=== PATIENT | female | born 1940 | race Caucasian/White ===

== ENCOUNTER → 2017-10-25 | Outpatient (CLI) | payer MEDICARE ==
--- NOTE | 2017-10-25 18:40 | MR ---
EXAMINATION TYPE: MR angio head wo con DATE OF EXAM: 10/25/2017 COMPARISON: NONE HISTORY: Headaches, I 70.90 TECHNIQUE: Time of flight images focusing on the [place] were performed without contrast. Th ree-dimensional reconstructions on an alternate workstation FINDINGS: The anterior posterior circulation are intact. There is no evident embolus, dissection, or aneurysm. Internal carotid arteries, vertebrobasilar system are patent. A1 segment of the internal ca rotid artery on the left is somewhat atrophic. IMPRESSION: Normal [place] MRA.
== END | disposition home or self-care (01) ==
LOC: RADMRIMAIN 13:00
PROVIDERS: ATTEND Internal Medicine
DX: I70.90 Unspecified atherosclerosis (principal)
CPT/HCPCS: 70544

== ENCOUNTER 2018-10-22 17:28 | Emergency (ER) | payer MEDICARE ==
[2018-10-22] MEDS ORDERED: KETOROLAC 60 MG/2 ML VIAL IM STA (17:33)
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
--- NOTE | 2018-10-22 18:41 | XR ---
EXAMINATION TYPE: XR shoulder complete LT DATE OF EXAM: 10/22/2018 COMPARISON: NONE HISTORY: Shoulder pain TECHNIQUE: 3 views FINDINGS: There is an apparent acute impacted fracture of the humeral neck. There is significant spur ring at the glenohumeral joint. There is no dislocation. There is spurring at the AC joint. IMPRESSION: Mildly impacted humeral neck fracture. No dislocation. Significant pre-existing arthritic change in the shoulder joint.
[2018-10-22] MEDS ORDERED: HYDROmorphone 1 MG/ML 1 ML SYRINGE IM STA (18:59)
[2018-10-22 19:35] VITALS: BP 155/72; PULSE 77; RESP 16
== END 2018-10-22 19:34 | disposition home or self-care (01) ==
LOC: EC 17:28
DX: S42.202A Unspecified fracture of upper end of left humerus, initial encounter for closed fracture (principal); F03.90 Unspecified dementia, unspecified severity, without behavioral disturbance, psychotic disturbance, mood disturbance, and anxiety; E07.9 Disorder of thyroid, unspecified; H54.8 Legal blindness, as defined in USA; Z88.5 Allergy status to narcotic agent; Z79.890 Hormone replacement therapy; Z79.899 Other long term (current) drug therapy; Z87.39 Personal history of other diseases of the musculoskeletal system and connective tissue; W01.0XXA Fall on same level from slipping, tripping and stumbling without subsequent striking against object, initial encounter; Y93.89 Activity, other specified; Y92.009 Unspecified place in unspecified non-institutional (private) residence as the place of occurrence of the external cause
CPT/HCPCS: 73030; 99283; L3670; J1885; J1170

== ENCOUNTER 2020-07-30 16:52 | Inpatient (IN) | payer MEDICARE ==
[2020-07-30] MEDS ORDERED: SODIUM CHLORIDE 0.9% 500 ML 500 ML IV ONE (17:45)
--- NOTE | 2020-07-30 17:48 | ED ---
Altered Mental Status HPI - General Chief Complaint: Altered Mental Status Stated Complaint: poss UTI Time Seen by Provider: 07/30/20 17:19 Source: EMS Mode of arrival: EMS Limitations: no limitations - History of Present Illness Initial Comments: Nelia is a 79yo female with history of advanced dementia who presents the ER today via EMS for evaluation of agitation and combativeness with family at bedside. EMS reports that upon their arrival the patient was then soiled clothes with a strong odor of urine, she clearly been unable to care for herself and her family been unable to care for her. She became combative with her elderly therefore EMS was called to bring the patient to hospital for further evaluation. She offers no meaningful history. - Related Data Home Medications Medication Instructions Recorded Confirmed Donepezil HCl [Aricept] 5 mg PO BID 10/22/18 07/30/20 Levothyroxine Sodium 100 mcg PO DAILY 07/30/20 07/30/20 Sertraline HCl [Zoloft] 100 mg PO DAILY 07/30/20 07/30/20 Allergies Allergy/AdvReac Type Severity Reaction Status Date / Time tramadol Allergy Nausea & Verified 10/22/18 17:49 Vomiting Review of Systems ROS Statement: Those systems with pertinent positive or pertinent negative responses have been documented in the HPI. ROS Other: All systems not noted in ROS Statement are negative. Past Medical History Past Medical History: Eye Disorder, GERD/Reflux, Osteoarthritis (OA), Thyroid Disorder Additional Past Medical History / Comment(s): Legally blind L eye. Has macular degeneration, diff. swallowing and arthritis in both hands. History of Any Multi-Drug Resistant Organisms: None Reported Past Surgical History: Cholecystectomy Additional Past Surgical History / Comment(s): EGD Past Anesthesia/Blood Transfusion Reactions: No Reported Reaction Past Alcohol Use History: None Reported Past Drug Use History: None Reported - Past Family History Mother Family Medical History: Unable to Obtain Additional Family Medical History / Comment(s): Pt. was adopted and does not know her family hx. General Exam - General Exam Comments Initial Comments: Physical Exam GENERAL: Elderly, no acute distress, not ill appearing Strong odor of urine, soiled clothing HENT: Normocephalic, Atraumatic. EYES: PERRL, EOMI PULMONARY: Unlabored respirations. CARDIOVASCULAR: Irregular ABDOMEN: Soft and nontender with normal bowel sounds. SKIN: Dry : Deferred NEUROLOGIC: Oriented to self only Agitated MUSCULOSKELETAL: Generalized atrophy PSYCHIATRIC: Unable to assess due to dementia Limitations: no limitations Course Vital Signs 07/30/20 07/30/20 07/30/20 17:01 17:20 18:21 Temperature 98.7 F Pulse Rate 76 87 86 Respiratory 16 16 16 Rate Blood Pressure 197/94 200/97 183/97 O2 Sat by Pulse 99 99 99 Oximetry 07/30/20 21:26 Temperature Pulse Rate 76 Respiratory 16 Rate Blood Pressure 199/93 O2 Sat by Pulse 100 Oximetry Medical Decision Making - Medical Decision Making Demented 79-year-old who is become combative not taking care of herself is not possible for her to take care of her Workup showed elevated TSH consistent with hypothyroid Urine had leukocytes and nitrites though not much white blood cells, culture will be obtained single dose of Rocephin was given Patient will be admitted for combativeness with the marriage and family social worker consult Dr Campos accepts - Lab Data Result diagrams: 07/30/20 17:52 07/30/20 17:52 Lab Results 07/30/20 07/30/20 07/30/20 Range/Units 17:39 17:52 17:52 WBC 5.1 (3.8-10.6) k/uL RBC 4.39 (3.80-5.40) m/uL Hgb 13.0 (11.4-16.0) gm/dL Hct 39.3 (34.0-46.0) % MCV 89.5 (80.0-100.0) fL MCH 29.6 (25.0-35.0) pg MCHC 33.0 (31.0-37.0) g/dL RDW 13.1 (11.5-15.5) % Plt Count 213 (150-450) k/uL MPV 8.0 Neutrophils % 62 % Lymphocytes % 23 % Monocytes % 9 % Eosinophils % 4 % Basophils % 1 % Neutrophils # 3.2 (1.3-7.7) k/uL Lymphocytes # 1.1 (1.0-4.8) k/uL Monocytes # 0.4 (0-1.0) k/uL Eosinophils # 0.2 (0-0.7) k/uL Basophils # 0.1 (0-0.2) k/uL Sodium 138 (137-145) mmol/L Potassium 4.3 (3.5-5.1) mmol/L Chloride 103 (98-107) mmol/L Carbon Dioxide 28 (22-30) mmol/L Anion Gap 7 mmol/L BUN 21 H (7-17) mg/dL Creatinine 0.99 (0.52-1.04) mg/dL Est GFR (CKD-EPI)AfAm 64 (>60 ml/min/1.73 sqM) Est GFR (CKD-EPI)NonAf 55 (>60 ml/min/1.73 sqM) Glucose 105 H (74-99) mg/dL Calcium 9.8 (8.4-10.2) mg/dL Total Bilirubin 0.5 (0.2-1.3) mg/dL AST 23 (14-36) U/L ALT 11 (4-34) U/L Alkaline Phosphatase 99 (38-126) U/L Total Protein 7.4 (6.3-8.2) g/dL Albumin 4.3 (3.5-5.0) g/dL TSH 9.770 H (0.465-4.680) mIU/L Free T4 1.11 (0.78-2.19) ng/dL Urine Color Yellow Urine Appearance Cloudy H (Clear) Urine pH 6.5 (5.0-8.0) Ur Specific [place] 1.014 (1.001-1.035) Urine Protein 1+ H (Negative) Urine Glucose (UA) Negative (Negative) Urine Ketones Negative (Negative) Urine Blood Negative (Negative) Urine Nitrite Positive H (Negative) Urine Bilirubin Negative (Negative) Urine Urobilinogen <2.0 (<2.0) mg/dL Ur Leukocyte Esterase Small H (Negative) Urine RBC <1 (0-5) /hpf Urine WBC 3 (0-5) /hpf Ur Squamous Epith Cells <1 (0-4) /hpf Urine Bacteria Few H (None) /hpf Urine Mucus Rare H (None) /hpf Coronavirus (PCR) (Not Detectd) 07/30/20 Range/Units 19:43 WBC (3.8-10.6) k/uL RBC (3.80-5.40) m/uL Hgb (11.4-16.0) gm/dL Hct (34.0-46.0) % MCV (80.0-100.0) fL MCH (25.0-35.0) pg MCHC (31.0-37.0) g/dL RDW (11.5-15.5) % Plt Count (150-450) k/uL MPV Neutrophils % % Lymphocytes % % Monocytes % % Eosinophils % % Basophils % % Neutrophils # (1.3-7.7) k/uL Lymphocytes # (1.0-4.8) k/uL Monocytes # (0-1.0) k/uL Eosinophils # (0-0.7) k/uL Basophils # (0-0.2) k/uL Sodium (137-145) mmol/L Potassium (3.5-5.1) mmol/L Chloride (98-107) mmol/L Carbon Dioxide (22-30) mmol/L Anion Gap mmol/L BUN (7-17) mg/dL Creatinine (0.52-1.04) mg/dL Est GFR (CKD-EPI)AfAm (>60 ml/min/1.73 sqM) Est GFR (CKD-EPI)NonAf (>60 ml/min/1.73 sqM) Glucose (74-99) mg/dL Calcium (8.4-10.2) mg/dL Total Bilirubin (0.2-1.3) mg/dL AST (14-36) U/L ALT (4-34) U/L Alkaline Phosphatase (38-126) U/L Total Protein (6.3-8.2) g/dL Albumin (3.5-5.0) g/dL TSH (0.465-4.680) mIU/L Free T4 (0.78-2.19) ng/dL Urine Color Urine Appearance (Clear) Urine pH (5.0-8.0) Ur Specific [place] (1.001-1.035) Urine Protein (Negative) Urine Glucose (UA) (Negative) Urine Ketones (Negative) Urine Blood (Negative) Urine Nitrite (Negative) Urine Bilirubin (Negative) Urine Urobilinogen (<2.0) mg/dL Ur Leukocyte Esterase (Negative) Urine RBC (0-5) /hpf Urine WBC (0-5) /hpf Ur Squamous Epith Cells (0-4) /hpf Urine Bacteria (None) /hpf Urine Mucus (None) /hpf Coronavirus (PCR) Not Detected (Not Detectd) Disposition Clinical Impression: Dementia Disposition: ADMITTED IP TO THIS HOSP Condition: Stable Referrals: River Kilpatrick MD [Primary Care Provider] - 1-2 days
[2020-07-30 18:00] LABS: Appearance,Urine Cloudy (Clear); Bacteria,Urine Few /hpf; Bilirubin,Urine Negative (Negative); Blood,Urine Negative (Negative); Color,Urine Yellow; Glucose,Urine (UA) Negative (Negative); Ketones,Urine Negative (Negative); Leukocyte Esterase,Urine Small (Negative); Mucus,Urine Rare /hpf; Nitrite,Urine Positive (Negative); PH, Urine 6.5 (5.0-8.0); Protein,Urine 1+ (Negative); RBC,Urine <1 /hpf (0-5); Specific Gravity,Urine 1.014 (1.001-1.035); Squamous Epithelial Cell,Urine <1 /hpf (0-4); Urobilinogen,Urine <2.0 mg/dL (<2.0); WBC,Urine 3 /hpf (0-5)
[2020-07-30 18:04] LABS: Basophils # (A) 0.1 k/uL (0-0.2); Basophils % (A) 1 %; Eosinophils # (A) 0.2 k/uL (0-0.7); Eosinophils % (A) 4 %; HCT 39.3 % (34.0-46.0); Lymphocytes # (A) 1.1 k/uL (1.0-4.8); Lymphocytes % (A) 23 %; MCH 29.6 pg (25.0-35.0); MCV 89.5 fL (80.0-100.0); Monocytes # (A) 0.4 k/uL (0-1.0); Monocytes % (A) 9 %; Neutrophils # (A) 3.2 k/uL (1.3-7.7); Neutrophils % (A) 62 %; Platelet Count 213 k/uL (150-450); RBC 4.39 m/uL (3.80-5.40); RDW 13.1 % (11.5-15.5); WBC 5.1 k/uL (3.8-10.6)
[2020-07-30 18:25] LABS: Albumin 4.3 g/dL (3.5-5.0); Calcium 9.8 mg/dL (8.4-10.2); Potassium 4.3 mmol/L (3.5-5.1); Total Bilirubin 0.5 mg/dL (0.2-1.3); Total Protein 7.4 g/dL (6.3-8.2)
--- NOTE | 2020-07-30 18:46 | XR ---
EXAMINATION TYPE: XR chest 1V portable DATE OF EXAM: 07/30/2020 COMPARISON: NONE HISTORY: Altered mental status TECHNIQUE: Single view FINDINGS: Heart is normal. Lungs are clear of consolidation there is coarsening of interstitial urel ngs. Thoracic aorta is atheromatous. There is no pleural effusion. There is some deformity left humeral neck consistent with an old fracture. IMPRESSION: Pulmonary interstitial fibrotic changes. No heart failure.
[2020-07-30] MEDS ORDERED: NALOXONE 0.4 MG/ML 1 ML VIAL IV PRN (19:08)
[2020-07-30 19:19] LABS: T4, Free (Free Thyroxine) 1.11 ng/dL (0.78-2.19)
[2020-07-30] MEDS ORDERED: cloNIDine HCL 0.1 MG TAB PO STA (21:37)
[2020-07-30] MEDS: LORazepam 2 MG/ML INJ IV PRN (22:42)
[2020-07-31] MEDS ORDERED: cloNIDine 0.1 MG/24HR PATCH TRANSDERM SCH (04:00)
[2020-07-31] MEDS: LORazepam 2 MG/ML INJ IV PRN ×2 (07:32→16:35)
[2020-07-31] MEDS ORDERED: SERTRALINE 100 MG TAB PO SCH (10:15)
[2020-07-31] MEDS: LEVOTHYROXINE 100 MCG TAB PO SCH (12:05)
[2020-07-31] MEDS ORDERED: risperiDONE 0.5 MG TAB PO SCH (21:00)
[2020-07-31] MEDS ORDERED: DONEPEZIL 5 MG TAB PO SCH (21:00)
--- NOTE | 2020-07-31 21:59 | P.HPIM ---
History of Present Illness H&P Date: 07/31/20 Chief Complaint: Increasing confusion History of presenting complaint: This is a 79-year-old patient of Dr. River Kilpatrick. Chronic stable medical conditions include GERD, osteoarthritis, hypothyroid, legally blind in left eye, macular degeneration,. Patient known to have advanced dementia. Brought in by the EMS to the ER. Patient been reported to have increased agitation and combativeness. In the EMS arrived they found the patient to be having solid closes strong odor of urine. She has not been able to care for self not is a family able to care for self. She also become combative with her elderly . When I see this patient this morning patient is not able to give any history. Just laying in bed and mumbling. Review of systems cannot be done because of patient's advanced dementia Past medical history to include: Dementia, GERD, osteoarthritis, hypothyroid, blind in the left eye, macular degeneration, some difficulty swallowing, arthritis Social history: No history of smoking or alcohol reported. Lives with family. Family history: Patient was adopted Physical examination: VITAL SIGNS: 98.7, 76, 16, 197.94, 99% room air GENERAL: BMI 34.3, laying in bed eyes closed mumbling. EYES: Pupils equal. Conjunctiva normal. HEENT: External appearance of nose and ears normal, oral cavity grossly normal. NECK: JVD unable to assess; masses not palpable. HEART: First and second heart sounds are normal; no edema. LUNGS: Respiratory rate normal; clear to auscultation. ABDOMEN: Soft, nontender, liver spleen not palpable, no masses palpable. PSYCH: [Patient just mumbling cannot be assessed. NEUROLOGICAL: [Cranial nerves grossly intact; no facial asymmetry, moving all limbs MUSCULAR skeletal: Evidence of OA especially in the hands LYMPHATICS: No lymph nodes palpable in the axilla and neck INVESTIGATIONS, reviewed in the clinical context: White count 5.1 hemoglobin 13 platelets 213 potassium 4.3 creatinine 0.99 TSH 9.7 feet T4 1 0.11 UA positive for nitrite, leukoesterase bacteria Coronavirus [PCR]-not detected EKG tracing personally reviewed by me-sinus rhythm with poor quality baseline Chest x-ray film personally reviewed by me-borderline cardiac megaly. Some unfolding of the aorta Assessment and plan: -This is a 79-year-old patient with advanced dementia. He seems to progressively gotten worse. Patient was somewhat agitated at home. There may be element of psychosis. From dementia. Patient not giving any history at all. -GERD continue with PPI -Primary osteoarthritis use Tylenol when necessary -Hypothyroid continue with Synthroid. Is unclear if patient has been taking her Synthroid -Depression patient is on Zoloft. At this point to discontinue the same -Acute UTI from cystitis. Start ceftriaxone -Essential hypertension accelerated -We will start the patient on Risperdal at night. DC the Zoloft. Use a Ca tapres patch for blood pressure. [employer] worker admin work. Lovenox for DVT prophylaxis. Fall precautions Past Medical History Past Medical History: Dementia, Eye Disorder, GERD/Reflux, Osteoarthritis (OA), Thyroid Disorder Additional Past Medical History / Comment(s): Legally blind L eye. Has macular degeneration, diff. swallowing and arthritis in both hands. History of Any Multi-Drug Resistant Organisms: None Reported Past Surgical History: Cholecystectomy Additional Past Surgical History / Comment(s): EGD Past Anesthesia/Blood Transfusion Reactions: No Reported Reaction Smoking Status: Unknown if ever smoked Past Alcohol Use History: None Reported Past Drug Use History: None Reported - Past Family History Mother Family Medical History: Unable to Obtain Additional Family Medical History / Comment(s): Pt. was adopted and does not know her family hx. Medications and Allergies Home Medications Medication Instructions Recorded Confirmed Type Donepezil HCl [Aricept] 5 mg PO BID 10/22/18 07/30/20 History Levothyroxine Sodium 100 mcg PO DAILY 07/30/20 07/30/20 History Sertraline HCl [Zoloft] 100 mg PO DAILY 07/30/20 07/30/20 History Allergies Allergy/AdvReac Type Severity Reaction Status Date / Time tramadol Allergy Nausea & Verified 10/22/18 17:49 Vomiting Physical Exam Vitals: Vital Signs Temp Pulse Pulse Pulse Resp BP BP 07/31/20 09:50 98.4 F 61 18 176/77 07/31/20 03:10 72 16 203/108 07/30/20 23:30 70 16 153/78 07/30/20 22:30 16 07/30/20 21:26 76 16 199/93 07/30/20 18:21 86 16 183/97 07/30/20 17:20 87 16 200/97 07/30/20 17:01 98.7 F 76 16 197/94 Pulse Ox 07/31/20 09:50 96 07/31/20 03:10 99 07/30/20 23:30 99 07/30/20 22:30 07/30/20 21:26 100 07/30/20 18:21 99 07/30/20 17:20 99 07/30/20 17:01 99 Intake and Output 07/30/20 07/31/20 07/31/20 22:59 06:59 14:59 Other: Voiding Method Diaper Diaper # Voids 4 Weight 90.718 kg Results CBC & Chem 7: 07/30/20 17:52 07/30/20 17:52 Labs: Abnormal Lab Results - Last 24 Hours (Table) 07/30/20 07/30/20 Range/Units 17:39 17:52 BUN 21 H (7-17) mg/dL Glucose 105 H (74-99) mg/dL TSH 9.770 H (0.465-4.680) mIU/L Urine Appearance Cloudy H (Clear) Urine Protein 1+ H (Negative) Urine Nitrite Positive H (Negative) Ur Leukocyte Esterase Small H (Negative) Urine Bacteria Few H (None) /hpf Urine Mucus Rare H (None) /hpf Thrombosis Risk Factor Assmnt - Choose All That Apply Each Factor Represents 1 point: Obesity (BMI >25) Each Risk Factor Represents 3 Points: Age 75 years or older Thrombosis Risk Factor Assessment Total Risk Factor Score: 4 Thrombosis Risk Factor Assessment Level: Moderate Risk
[2020-08-01] MEDS: LEVOTHYROXINE 100 MCG TAB PO SCH ×2 (05:50→05:52)
--- NOTE | 2020-08-01 20:01 | P.PN ---
Progress Note - Text Progress Note Date: 08/01/20 Chief Complaint: Increasing confusion History of presenting complaint: This is a 79-year-old patient of Dr. River Kilpatrick. Chronic stable medical conditions include GERD, osteoarthritis, hypothyroid, legally blind in left eye, macular degeneration,. Patient known to have advanced dementia. Brought in by the EMS to the ER. Patient been reported to have increased agitation and combativeness. In the EMS arrived they found the patient to be having solid closes strong odor of urine. She has not been able to care for self not is a family able to care for self. She also become combative with her elderly . When I see this patient patient is not able to give any history. Just laying in bed and mumbling. Patient intubated with advancing dementia. Agitation. Started on small dose of Risperdal at night. Today- at the bedside. Patient is awake.. Patient's flipping through a [place]. But not really able to answer questions. Did not eat any breakfast. does state that the patient does not sleep at home and walks around at night. Review of systems cannot be done because of patient's advanced dementia Active Medications Clonidine HCl (Clonidine 0.1 Mg/24hr Patch) 1 patch TRANSDERM Q7D [facility] Last Admin: 07/31/20 04:06 Dose: 1 patch Documented by: Ceftriaxone Sodium 1 gm/ (Sodium Chloride) 50 mls @ 100 mls/hr IVPB Q24HR [facility] Last Admin: 08/01/20 07:24 Dose: 100 mls/hr Documented by: Levothyroxine Sodium (Levothyroxine 100 Mcg Tab) 100 mcg PO DAILY@0630 [facility] Last Admin: 08/01/20 05:52 Dose: Not Given Documented by: Lorazepam (Lorazepam 2 Mg/Ml Inj) 0.5 mg IV Q6HR PRN PRN Reason: Agitation or Acute Anxiety Last Admin: 07/31/20 16:35 Dose: 0.5 mg Documented by: Naloxone HCl (Naloxone 0.4 Mg/Ml 1 Ml Vial) 0.2 mg IV Q2M PRN PRN Reason: Opioid Reversal Risperidone (Risperidone 0.25 Mg Tab) 0.25 mg PO HS [facility] Past medical history to include: Dementia, GERD, osteoarthritis, hypothyroid, blind in the left eye, macular degeneration, some difficulty swallowing, arthritis Social history: No history of smoking or alcohol reported. Lives with family. Family history: Patient was adopted Physical examination: VITAL SIGNS: 96.2, 89, 20, 150 06/09/2019, 99% room air GENERAL: Sitting up in bed, awake, flipping through [place]. Not answering questions EYES: Pupils equal. Conjunctiva normal. NECK: JVD unable to assess; masses not palpable. HEART: First and second heart sounds are normal; no edema. LUNGS: Respiratory rate normal; clear to auscultation. ABDOMEN: Soft, nontender, liver spleen not palpable, no masses palpable. PSYCH: Unable to assess NEUROLOGICAL: [Cranial nerves grossly intact; no facial asymmetry, moving all limbs MUSCULAR skeletal: Evidence of OA especially in the hands INVESTIGATIONS, reviewed in the clinical context: White count 5.1 hemoglobin 13 platelets 213 potassium 4.3 creatinine 0.99 TSH 9.7 feet T4 1 0.11 UA positive for nitrite, leukoesterase bacteria Coronavirus [PCR]-not detected EKG tracing personally reviewed by me-sinus rhythm with poor quality baseline Chest x-ray film personally reviewed by me-borderline cardiac megaly. Some unfolding of the aorta Assessment and plan: -Severe cognitive impairment from Alzheimer's dementia, with irritability -GERD continue with PPI -Primary osteoarthritis use Tylenol when necessary -Hypothyroid continue with Synthroid. Is unclear if patient has been taking her Synthroid -Depression patient is on Zoloft. At this point to discontinue the same -Acute UTI from cystitis. Start ceftriaxone -Essential hypertension accelerated We'll cut back the dose of Risperdal to .25 mg at night. Will DC the Catapres patch and start the patient on Lopressor 100 mg twice daily. Care was discussed at length with the patient's at the bedside. He wishes to take the patient home. I reinforced the importance of sleep hygiene. Discharge planning was involved. Change ceftriaxone to Keflex. Spoke to the nurse. Total time spent about 40 minutes with over 25 minutes of discussion.
[2020-08-01] MEDS: ENOXAPARIN 40 MG/0.4 ML SYRINGE SQ SCH (20:22)
[2020-08-01] MEDS: METOPROLOL TARTRATE 50 MG TAB PO SCH (20:22)
[2020-08-01] MEDS: LORazepam 2 MG/ML INJ IV PRN (20:23)
[2020-08-01] MEDS ORDERED: risperiDONE 0.25 MG TAB PO SCH (21:00)
[2020-08-02] MEDS: LEVOTHYROXINE 100 MCG TAB PO SCH (05:45)
[2020-08-02] MEDS: ENOXAPARIN 40 MG/0.4 ML SYRINGE SQ SCH (08:26)
[2020-08-02] MEDS: CEPHALEXIN 250 MG CAP PO SCH ×2 (08:26→16:29)
[2020-08-02] MEDS: METOPROLOL TARTRATE 50 MG TAB PO SCH (08:26)
[2020-08-02 14:59] VITALS: BP 160/84; PULSE 74; RESP 17; TEMP 97.8
--- NOTE | 2020-08-02 22:55 | P.DS ---
Providers Date of admission: 08/01/20 10:06 Expected date of discharge: 08/02/20 Attending physician: Rell Campos Primary care physician: River Kilpatrick [facility] Course: Chief Complaint: Increasing confusion History of presenting complaint: This is a 79-year-old patient of Dr. River Kilpatrick. Chronic stable medical conditions include GERD, osteoarthritis, hypothyroid, legally blind in left eye, macular degeneration,. Patient known to have advanced dementia. Brought in by the EMS to the ER. Patient been reported to have increased agitation and combativeness. In the EMS arrived they found the patient to be having soiled clothes, strong odor of urine. She has not been able to care for self not is a family able to care for self. She also become combative with her elderly . When I see this patient patient is not able to give any history. Just laying in bed and mumbling. Admitted with advancing dementia. Agitation. Started on small dose of Risperdal at night. Responded well. did see that at home patient was not sleeping and that night and wandering about the house. Aricept and Zoloft was discontinued. Oral intake variable. Also treated for UTI Today-case operator was involved in the discharge planning. Spoke to the . Reinforced importance of sleep cycle. Patient's current dose of Risperdal is working well. Patient has rather been calm in the hospital. Cooperative. will be getting additional help. Blood pressure medications were adjusted Discussion and discharge planning more than 35 minutes Past medical history to include: Dementia, GERD, osteoarthritis, hypothyroid, blind in the left eye, macular degeneration, some difficulty swallowing, arthritis Social history: No history of smoking or alcohol reported. Lives with family. Family history: Patient was adopted Physical examination: VITAL SIGNS: 97.1, 57, 17, 160/84, 97% room air GENERAL: Laying in bed, comfortable EYES: Pupils equal. Conjunctiva normal. NECK: JVD unable to assess; masses not palpable. HEART: First and second heart sounds are normal; no edema. LUNGS: Respiratory rate normal; clear to auscultation. ABDOMEN: Soft, nontender, liver spleen not palpable, no masses palpable. PSYCH: Limited historian MUSCULAR skeletal: Evidence of OA especially in the hands INVESTIGATIONS, reviewed in the clinical context: White count 5.1 hemoglobin 13 platelets 213 potassium 4.3 creatinine 0.99 TSH 9.7 feet T4 1 0.11 UA positive for nitrite, leukoesterase bacteria Coronavirus [PCR]-not detected EKG tracing personally reviewed by me-sinus rhythm with poor quality baseline Chest x-ray film personally reviewed by me-borderline cardiac megaly. Some unfolding of the aorta Assessment and plan: -Severe cognitive impairment from Alzheimer's dementia, -Severely distorted awake sleep cycle. Responded well to Risperdal -GERD continue with PPI -Primary osteoarthritis use Tylenol when necessary -Hypothyroid continue with Synthroid. Is unclear if patient has been taking her Synthroid -Depression-patient advanced dementia. Benefit from Zoloft minimal discontinued -Acute UTI from cystitis. Start ceftriaxone. oversize load pilot escort to Keflex -Essential hypertension accelerated. Medications adjusted Disposition: Home Patient Condition at Discharge: Stable Plan - Discharge Summary Discharge Rx Participant: No New Discharge Prescriptions: New Cephalexin [Keflex] 250 mg PO TID #9 cap Metoprolol Tartrate [Lopressor] 100 mg PO BID #60 tab risperiDONE [RisperDAL] 0.25 mg PO HS #30 tab Lisinopril-Hctz 20-12.5 mg [Zestoretic 20-12.5] 1 tab PO HS #30 tab Continue Levothyroxine Sodium 100 mcg PO DAILY Discontinued Donepezil HCl [Aricept] 5 mg PO BID Sertraline HCl [Zoloft] 100 mg PO DAILY Discharge Medication List Levothyroxine Sodium 100 mcg PO DAILY 07/30/20 [History] Cephalexin [Keflex] 250 mg PO TID #9 cap 08/02/20 [Rx] Lisinopril-Hctz 20-12.5 mg [Zestoretic 20-12.5] 1 tab PO HS #30 tab 08/02/20 [Rx] Metoprolol Tartrate [Lopressor] 100 mg PO BID #60 tab 08/02/20 [Rx] risperiDONE [RisperDAL] 0.25 mg PO HS #30 tab 08/02/20 [Rx] Follow up Appointment(s)/Referral(s): [facility] [NON-STAFF] - (Call to see if they have a bedside commode. ) [facility], [NON-STAFF] - River Kilpatrick MD [Primary Care Provider] - [facility] (Call to see if they have a bedside commode. ) Patient Instructions/Handouts: Urinary Tract Infection in Women (DC), Dementia (GEN) Discharge Disposition: HOME SELF-CARE
== END 2020-08-02 18:50 | disposition home health service (06) | DRG 57 ==
LOC: EC 16:52 → 4SSUR 19:08 → UNDOADMOB 21:11 → OBSVTOIN 08-01 10:06
PROVIDERS: ADMIT Hospitalist; ATTEND Hospitalist
DX: G30.9 Alzheimer's disease, unspecified (principal); F02.81 Dementia in other diseases classified elsewhere, unspecified severity, with behavioral disturbance; N30.90 Cystitis, unspecified without hematuria; Z20.822 Contact with and (suspected) exposure to COVID-19; K21.9 Gastro-esophageal reflux disease without esophagitis; M19.042 Primary osteoarthritis, left hand; M19.041 Primary osteoarthritis, right hand; H54.8 Legal blindness, as defined in USA; E03.9 Hypothyroidism, unspecified; H35.30 Unspecified macular degeneration; F41.9 Anxiety disorder, unspecified; R13.10 Dysphagia, unspecified; F32.9 Major depressive disorder, single episode, unspecified; I10 Essential (primary) hypertension; E66.9 Obesity, unspecified; Z68.34 Body mass index [BMI] 34.0-34.9, adult; Z91.83 Wandering in diseases classified elsewhere; Z79.890 Hormone replacement therapy; Z79.899 Other long term (current) drug therapy; Z88.8 Allergy status to other drugs, medicaments and biological substances; Z90.49 Acquired absence of other specified parts of digestive tract
CPT/HCPCS: 71045; 80053; 81001; 84439; 84443; 85025; 87635; 93005; 96360; 96361; 99285

== ENCOUNTER 2020-12-24 19:20 | Inpatient (IN) | payer MEDICARE ==
[2020-12-24] MEDS ORDERED: SODIUM CHLORIDE 0.9% 500 ML 500 ML IV ONE (20:01)
--- NOTE | 2020-12-24 20:32 | ED ---
General Adult HPI - General Chief complaint: Recheck/Abnormal Lab/Rx Stated complaint: Altered Mental Status Time Seen by Provider: 12/24/20 19:23 Source: EMS Mode of arrival: EMS Limitations: altered mental status - History of Present Illness Initial comments: 80-year-old female patient is brought in from her facility for altered mental status. She apparently lives at home with her , he is unable to care for her at home any longer. States that she becomes combative and will not allow him to clean her or care for her. Patient arrives soaked in urine and covered in feces. Patient is alert but oriented x0 at this time. She is reporting pain to the right hip. Not able to discuss any other symptoms or history. denies any recent vomiting or diarrhea. Denies known fever or chills. States it is getting difficulty to care for her at home. - Related Data Home Medications Medication Instructions Recorded Confirmed Levothyroxine Sodium 100 mcg PO DAILY 07/30/20 07/30/20 Previous Rx's Medication Instructions Recorded Cephalexin [Keflex] 250 mg PO TID #9 cap 08/02/20 Lisinopril-Hctz 20-12.5 mg 1 tab PO HS #30 tab 08/02/20 [Zestoretic 20-12.5] Metoprolol Tartrate [Lopressor] 100 mg PO BID #60 tab 08/02/20 risperiDONE [RisperDAL] 0.25 mg PO HS #30 tab 08/02/20 Allergies Allergy/AdvReac Type Severity Reaction Status Date / Time tramadol Allergy Nausea & Verified 10/22/18 17:49 Vomiting Review of Systems ROS Statement: Those systems with pertinent positive or pertinent negative responses have been documented in the HPI. ROS Other: All systems not noted in ROS Statement are negative. Past Medical History Past Medical History: Dementia, Eye Disorder, GERD/Reflux, Osteoarthritis (OA), Thyroid Disorder Additional Past Medical History / Comment(s): Legally blind L eye. Has macular degeneration, diff. swallowing and arthritis in both hands. History of Any Multi-Drug Resistant Organisms: None Reported Past Surgical History: Cholecystectomy Additional Past Surgical History / Comment(s): EGD Past Anesthesia/Blood Transfusion Reactions: No Reported Reaction Smoking Status: Unknown if ever smoked Past Alcohol Use History: None Reported Past Drug Use History: None Reported - Past Family History Mother Family Medical History: Unable to Obtain Additional Family Medical History / Comment(s): Pt. was adopted and does not know her family hx. General Exam Limitations: altered mental status General appearance: alert, in no apparent distress, other (Physical well- developed, well-nourished adult female patient who does not appear to be in any acute distress. Vital signs upon presentation are temperature 98.7F, pulse 69, respirations 18, blood pressure 222/109, pulse ox 100% on room air.) Respiratory exam: Present: normal lung sounds bilaterally. Absent: respiratory distress, wheezes, rales, rhonchi, stridor Cardiovascular Exam: Present: regular rate, normal rhythm, normal heart sounds. Absent: systolic murmur, diastolic murmur, rubs, gallop, clicks GI/Abdominal exam: Present: soft, normal bowel sounds. Absent: distended, tenderness, guarding, rebound, rigid Extremities exam: Present: normal inspection, full ROM, tenderness (Left lateral hip), normal capillary refill, other (Skin to the left and right legs are pink, warm, dry. There is significant edema to the bilateral ankles. Feet are cool to touch. Pedal pulse 2+.). Absent: pedal edema, joint swelling, calf tenderness Neurological exam: Present: alert, CN II-XII intact. Absent: oriented X3 (Oriented 0) Psychiatric exam: Present: normal affect, normal mood Skin exam: Present: warm, dry, intact, normal color. Absent: rash Course Vital Signs 12/24/20 12/24/20 12/24/20 19:34 21:23 23:00 Temperature 98.7 F Pulse Rate 69 65 66 Respiratory 18 18 Rate Blood Pressure 222/109 203/94 193/104 O2 Sat by Pulse 100 100 Oximetry 12/25/20 00:37 Temperature Pulse Rate 70 Respiratory Rate Blood Pressure 181/98 O2 Sat by Pulse 96 Oximetry EKG Findings - EKG Comments: EKG Findings:: EKG obtained at 2104 shows sinus bradycardia with PACs. Ve ntricular 68, OH interval 136, QRS duration 78, QT 402, QTc 394. No evidence of ST elevation or depression. Medical Decision Making - Medical Decision Making 80-year-old female patient with past medical history significant for dementia presents to the emergency department today for evaluation of increased agitation. Family is having a very difficult time trying for her at home. Upon arrival patient was covered in urine and feces. She is alert and oriented 0 during my evaluation. She was reporting right hip pain and did have some tender ness of x-ray was obtained and was negative. Labs reviewed and did reveal elevated white blood cell count at 12.0. Urinalysis showed evidence for infection. She was given Rocephin IV push. She is also given doses of antihypertensive medication. She'll be admitted to the hospital for treatment f or UTI and possible placement at ECF. Case discussed with my attending Dr. White. - Lab Data Result diagrams: 12/24/20 21:13 12/24/20 21:13 Lab Results 12/24/20 12/24/20 12/24/20 Range/Units 21:13 21:13 21:13 WBC 12.0 H (3.8-10.6) k/uL RBC 4.85 (3.80-5.40) m/uL Hgb 14.6 (11.4-16.0) gm/dL Hct 42.3 (34.0-46.0) % MCV 87.2 (80.0-100.0) fL MCH 30.1 (25.0-35.0) pg MCHC 34.5 (31.0-37.0) g/dL RDW 13.5 (11.5-15.5) % Plt Count 198 (150-450) k/uL MPV 8.1 Neutrophils % 86 % Lymphocytes % 7 % Monocytes % 6 % Eosinophils % 1 % Basophils % 1 % Neutrophils # 10.4 H (1.3-7.7) k/uL Lymphocytes # 0.8 L (1.0-4.8) k/uL Monocytes # 0.7 (0-1.0) k/uL Eosinophils # 0.1 (0-0.7) k/uL Basophils # 0.1 (0-0.2) k/uL PT 11.3 (9.0-12.0) sec INR 1.1 (<1.2) APTT 22.7 (22.0-30.0) sec Sodium 141 (137-145) mmol/L Potassium 3.6 (3.5-5.1) mmol/L Chloride 105 (98-107) mmol/L Carbon Dioxide 25 (22-30) mmol/L Anion Gap 11 mmol/L BUN 19 H (7-17) mg/dL Creatinine 0.95 (0.52-1.04) mg/dL Est GFR (CKD-EPI)AfAm 67 (>60 ml/min/1.73 sqM) Est GFR (CKD-EPI)NonAf 58 (>60 ml/min/1.73 sqM) Glucose 123 H (74-99) mg/dL Calcium 9.7 (8.4-10.2) mg/dL Total Bilirubin 0.8 (0.2-1.3) mg/dL AST 25 (14-36) U/L ALT 10 (4-34) U/L Alkaline Phosphatase 90 (38-126) U/L Troponin I (0.000-0.034) ng/mL Total Protein 7.5 (6.3-8.2) g/dL Albumin 4.7 (3.5-5.0) g/dL Urine Color Urine Appearance (Clear) Urine pH (5.0-8.0) Ur Specific [place] (1.001-1.035) Urine Protein (Negative) Urine Glucose (UA) (Negative) Urine Ketones (Negative) Urine Blood (Negative) Urine Nitrite (Negative) Urine Bilirubin (Negative) Urine Urobilinogen (<2.0) mg/dL Ur Leukocyte Esterase (Negative) Urine RBC (0-5) /hpf Urine WBC (0-5) /hpf 12/24/20 12/24/20 Range/Units 21:13 22:27 WBC (3.8-10.6) k/uL RBC (3.80-5.40) m/uL Hgb (11.4-16.0) gm/dL Hct (34.0-46.0) % MCV (80.0-100.0) fL MCH (25.0-35.0) pg MCHC (31.0-37.0) g/dL RDW (11.5-15.5) % Plt Count (150-450) k/uL MPV Neutrophils % % Lymphocytes % % Monocytes % % Eosinophils % % Basophils % % Neutrophils # (1.3-7.7) k/uL Lymphocytes # (1.0-4.8) k/uL Monocytes # (0-1.0) k/uL Eosinophils # (0-0.7) k/uL Basophils # (0-0.2) k/uL PT (9.0-12.0) sec INR (<1.2) APTT (22.0-30.0) sec Sodium (137-145) mmol/L Potassium (3.5-5.1) mmol/L Chloride (98-107) mmol/L Carbon Dioxide (22-30) mmol/L Anion Gap mmol/L BUN (7-17) mg/dL Creatinine (0.52-1.04) mg/dL Est GFR (CKD-EPI)AfAm (>60 ml/min/1.73 sqM) Est GFR (CKD-EPI)NonAf (>60 ml/min/1.73 sqM) Glucose (74-99) mg/dL Calcium (8.4-10.2) mg/dL Total Bilirubin (0.2-1.3) mg/dL AST (14-36) U/L ALT (4-34) U/L Alkaline Phosphatase (38-126) U/L Troponin I <0.012 (0.000-0.034) ng/mL Total Protein (6.3-8.2) g/dL Albumin (3.5-5.0) g/dL Urine Color Yellow Urine Appearance Clear (Clear) Urine pH 7.5 (5.0-8.0) Ur Specific [place] 1.007 (1.001-1.035) Urine Protein 1+ H (Negative) Urine Glucose (UA) Negative (Negative) Urine Ketones Trace H (Negative) Urine Blood Large H (Negative) Urine Nitrite Positive H (Negative) Urine Bilirubin Negative (Negative) Urine Urobilinogen <2.0 (<2.0) mg/dL Ur Leukocyte Esterase Trace H (Negative) Urine RBC >182 H (0-5) /hpf Urine WBC 11 H (0-5) /hpf - Radiology Data Radiology results: report reviewed, image reviewed Two-view x-ray of the chest was obtained report is reviewed in its entirety. Impression by Dr. Earl shows no active cardiopulmonary disease. Normal heart. No change. Disposition Clinical Impression: Altered mental status, Urinary tract infection Disposition: ADMITTED IP TO THIS [facility] Condition: Serious Decision to Admit Reason: Admit from EC Decision Date: 12/24/20 Decision Time: 23:28
--- NOTE | 2020-12-24 22:12 | XR ---
EXAMINATION TYPE: XR chest 2V DATE OF EXAM: 12/24/2020 COMPARISON: 07/30/2020 HISTORY: Chest pain TECHNIQUE: 2 views FINDINGS: There is no heart failure nor confluent pneumonic infiltrate. Costophrenic angles are clear . Thoracic aorta is atheromatous. There are chest leads. IMPRESSION: No active cardiopulmonary disease. Normal heart. No change.
--- NOTE | 2020-12-24 22:13 | XR ---
EXAMINATION TYPE: XR Hip RT and AP Pelvis DATE OF EXAM: 12/24/2020 COMPARISON: NONE HISTORY: Pain TECHNIQUE: 3 views FINDINGS: The pelvic ring is intact. Proximal right femur and hip joint appear intact and there is no hip dysplasia. There is vascular calcification. Sacroiliac joints are intact. IMPRESSION: No acute abnormality the pelvis and right hip.
[2020-12-24 22:36] LABS: Albumin 4.7 g/dL (3.5-5.0); Calcium 9.7 mg/dL (8.4-10.2); Potassium 3.6 mmol/L (3.5-5.1); Total Bilirubin 0.8 mg/dL (0.2-1.3); Total Protein 7.5 g/dL (6.3-8.2)
[2020-12-24 22:37] LABS: Basophils # (A) 0.1 k/uL (0-0.2); Basophils % (A) 1 %; Eosinophils # (A) 0.1 k/uL (0-0.7); Eosinophils % (A) 1 %; HCT 42.3 % (34.0-46.0); HGB 14.6 gm/dL (11.4-16.0); INR 1.1 (<1.2); Lymphocytes # (A) 0.8 k/uL (1.0-4.8); Lymphocytes % (A) 7 %; MCH 30.1 pg (25.0-35.0); MCHC 34.5 g/dL (31.0-37.0); MCV 87.2 fL (80.0-100.0); Mean Platelet Volume 8.1; Monocytes # (A) 0.7 k/uL (0-1.0); Monocytes % (A) 6 %; Neutrophils # (A) 10.4 k/uL (1.3-7.7); Neutrophils % (A) 86 %; Partial Thromboplastin Time 22.7 sec (22.0-30.0); Platelet Count 198 k/uL (150-450); Prothrombin Time 11.3 sec (9.0-12.0); RBC 4.85 m/uL (3.80-5.40); RDW 13.5 % (11.5-15.5)
[2020-12-24 22:46] LABS: Appearance,Urine Clear (Clear); Bilirubin,Urine Negative (Negative); Blood,Urine Large (Negative); Color,Urine Yellow; Glucose,Urine (UA) Negative (Negative); Ketones,Urine Trace (Negative); Leukocyte Esterase,Urine Trace (Negative); Nitrite,Urine Positive (Negative); PH, Urine 7.5 (5.0-8.0); Protein,Urine 1+ (Negative); RBC,Urine >182 /hpf (0-5); Specific Gravity,Urine 1.007 (1.001-1.035); Urobilinogen,Urine <2.0 mg/dL (<2.0); WBC,Urine 11 /hpf (0-5)
[2020-12-24] MEDS ORDERED: cefTRIAXone IN SWFI 1,000 MG/10 ML SYRINGE IVP STA (23:00)
[2020-12-24] MEDS ORDERED: NALOXONE 0.4 MG/ML 1 ML VIAL IV PRN (23:25)
[2020-12-24] MEDS ORDERED: ONDANSETRON 4 MG/2 ML VIAL IVP PRN (23:25)
[2020-12-24] MEDS ORDERED: ENALAPRILAT 1.25 MG/ML 1 ML VIAL IVP STA (23:49)
[2020-12-25] MEDS ORDERED: hydrALAZINE HCL 20 MG/ML 1 ML VIAL IVP STA (02:18)
--- NOTE | 2020-12-25 02:35 | P.HPIM ---
History of Present Illness H&P Date: 12/25/20 Chief Complaint: worsening mental status and confusion 80 year old female with dementia , hypertension patient was brought in by her due to worsening confusion and altered mental status, he reports that she is becoming very combative and he is unable to take care of her anymore. he is not available for interview, and patient unable to provide any meaningful history , she is alert, but very confused. workup in the ED suggested UTI. patient upon presenting was covered with stool and urine . no report of GI bleeding , fever or chills. Review of Systems ROS unobtainable: due to mental status Past Medical History Past Medical History: Dementia, Eye Disorder, GERD/Reflux, Osteoarthritis (OA), Thyroid Disorder Additional Past Medical History / Comment(s): Legally blind L eye. Has macular degeneration, diff. swallowing and arthritis in both hands. History of Any Multi-Drug Resistant Organisms: None Reported Past Surgical History: Cholecystectomy Additional Past Surgical History / Comment(s): EGD Past Anesthesia/Blood Transfusion Reactions: No Reported Reaction Smoking Status: Unknown if ever smoked Past Alcohol Use History: None Reported Past Drug Use History: None Reported - Past Family History Mother Family Medical History: Unable to Obtain Additional Family Medical History / Comment(s): Pt. was adopted and does not know her family hx. Medications and Allergies Home Medications Medication Instructions Recorded Confirmed Type Levothyroxine Sodium 100 mcg PO DAILY 07/30/20 07/30/20 History Cephalexin [Keflex] 250 mg PO TID #9 cap 08/02/20 Rx Lisinopril-Hctz 20-12.5 mg 1 tab PO HS #30 tab 08/02/20 Rx [Zestoretic 20-12.5] Metoprolol Tartrate [Lopressor] 100 mg PO BID #60 tab 08/02/20 Rx risperiDONE [RisperDAL] 0.25 mg PO HS #30 tab 08/02/20 Rx Allergies Allergy/AdvReac Type Severity Reaction Status Date / Time tramadol Allergy Nausea & Verified 10/22/18 17:49 Vomiting Physical Exam Vitals: Vital Signs Temp Pulse Resp BP Pulse Ox 12/25/20 00:37 70 181/98 96 12/24/20 23:00 66 193/104 12/24/20 21:23 65 18 203/94 100 12/24/20 19:34 98.7 F 69 18 222/109 100 Intake and Output 12/24/20 12/24/20 12/25/20 14:59 22:59 06:59 Other: Weight 68.039 kg Constitutional: No acute distress, pleasantly confused Eyes: Anicteric sclerae, moist conjunctiva, Pupils equal round reactive to light ENMT: NC/AT Oropharynx clear, no erythema, or exudates Neck: Supple, FROM, no masses, or JVD No carotid bruits No thyromegaly Lungs: Clear to auscultation Clear to percussion Normal respiratory effort, no accessory muscle use Cardiovascular: Heart regular in rate and rhythm, No murmurs, gallops, or rubs slight edema of right lower leg Abdominal: Soft tenderness to palpation of the suprapubic region , no guarding, rebound or rigidity Abdomen moving with respiration Normoactive bowel sounds No hepatomegaly, No splenomegaly No palpable mass No abdominal wall hernia noted Skin: Normal temperature, tone, texture, turgor No induration No subcutaneous nodules No rash, lesions No ulcers Extremities: No digital cyanosis No clubbing Pedal pulses intact and symmetrical Radial pulses intact and symmetrical slight discomfort to palpation of right calf Psychiatric: Alert and confused , oriented to self only Appropriate affect Neuro Muscles Strength 4/5 in all 4 extremities Sensation to light touch grossly present throughout Cranial nerves II-XII grossly intact No focal sensory deficits Lymphatics: no palpable cervical or supraclavicular , or inguinal lymph nodes Results CBC & Chem 7: 12/24/20 21:13 12/24/20 21:13 Labs: Abnormal Lab Results - Last 24 Hours (Table) 12/24/20 12/24/20 12/24/20 Range/Units 21:13 21:13 22:27 WBC 12.0 H (3.8-10.6) k/uL Neutrophils # 10.4 H (1.3-7.7) k/uL Lymphocytes # 0.8 L (1.0-4.8) k/uL BUN 19 H (7-17) mg/dL Glucose 123 H (74-99) mg/dL Urine Protein 1+ H (Negative) Urine Ketones Trace H (Negative) Urine Blood Large H (Negative) Urine Nitrite Positive H (Negative) Ur Leukocyte Esterase Trace H (Negative) Urine RBC >182 H (0-5) /hpf Urine WBC 11 H (0-5) /hpf Assessment and Plan Assessment: worsening dementia UTI right calf tendernss and slight swelling , rule out DVT hypertension hypothyroid plan follow up cultures empiric antibiotics [employer] social [employer] consult for placement follow up labs resume home meds venous duplex US of right lower extremity fall precautions IVF hydration verify home meds CODE STATUS:full code DVT prophylaxis:heparin sc tid Discussed with: Patient, ER,RN Anticipated length of stay > than [address]:pending clinical course , MARISELA A total of 65 minutes was spent on the care of this complex patient more than 50% of the time was spent in counseling and care coordination.
[2020-12-25] MEDS: LEVOTHYROXINE 100 MCG TAB PO SCH ×2 (09:44→09:49)
[2020-12-25] MEDS: SODIUM CHLORIDE 0.9% 1,000 ML IV SCH ×2 (09:44→16:42)
[2020-12-25] MEDS: HEPARIN SODIUM,PORCINE/PF 5,000 UNIT/0.5 ML SYRINGE SQ SCH ×3 (09:44→16:42)
[2020-12-25] MEDS: METOPROLOL TARTRATE 50 MG TAB PO SCH ×3 (09:44→20:04)
--- NOTE | 2020-12-25 10:38 | P.PN ---
<Ciro Doan - Last Filed: 12/25/20 13:17> Subjective Progress Note Date: 12/25/20 Hospital course: Patient is a 72-year-old female with a past medical history of hypertension, hypothyroidism, and dementia. She was brought to the emergency department by her for reports of worsening confusion and combative behaviors. reports over the last week patient has had increased confusion, refusing to take her medications, urinary and bowel incontinence, and increased agitation with combative behaviors. In the emergency department., Patient was fully worked up. Chest x-ray completed negative for acute cardiopulmonary process. X-ray hip and pelvis negative for acute abnormalities. EKG showed sinus bradycardia at 58 bpm with occasional PACs. Labs obtained revealing mild leukocytosis with WBC count of 12.0 and acute cystitis as evidenced by urinalysis positive for protein, ketones, blood, nitrites, leukocytes, and greater than 182 WBCs. Patient started on Rocephin 1 g every 24 hours. Urine culture obtained. Patient was admitted under our services with consultation to case management for possible assistance with placement. Patient's reports he would like patient to go home, but needs assistance caring for her as he is not able to do so on his own. Physical exam: General: non toxic, no distress, appears at stated age Derm: warm, dry Head: atraumatic, normocephalic, symmetric Eyes: EOMI, no lid lag, anicteric sclera Mouth: no lip lesion, mucus membranes moist Cardiovascular: S1S2 reg, no murmur, positive posterior tibial pulse bilateral, Lungs: CTA bilateral, no rhonchi, no rales , no accessory muscle use Abdominal: soft, nontender to palpation, no guarding, no appreciable organomegaly Ext: no gross muscle atrophy, no contractures.. Nonpitting edema to bilateral feet and ankles Neuro: Speech clear. Patient following commands. Moving all extremities with no noted focal neuro deficits Psych: Patient alert to self only, confused to time, place, and situation. Plan of care: Increasing confusion possibly secondary to worsening dementia versus acute delirium resulting from UTI -Will treat underlying infectious process of UTI with Rocephin 1 g every 24 hours and obtain urine culture. -Gentle hydration with 0.9% normal saline at 75 mL's per hour -Safe and symptomatic care with redirection as needed. -Consult to case management for assistance with possible placement versus home care. -Fall precautions Acute cystitis -Treatment with gentle hydration with IV fluids -IV antibiotics: Rocephin. -Urine culture -Bladder management, bladder scan as needed to assess for post void residual CODE STATUS: Full code DVT prophylaxis: Heparin Discussed with: Patient's and RN Anticipated discharge date: Clinical course to determine Anticipated discharge place: Home with homecare versus SNF A total of 45 minutes was spent on the care of this complex patient more than 50% of the time was spent in counseling and care coordination. Objective - Vital Signs Vital signs: Vital Signs Temp 98.7 F 12/24/20 19:34 Pulse 64 12/25/20 09:43 Resp 18 12/25/20 09:43 BP 140/76 12/25/20 09:43 Pulse Ox 99 12/25/20 09:43 Intake & Output 12/24/20 12/25/20 12/25/20 18:59 06:59 18:59 Weight 68.039 kg - Labs CBC & Chem 7: 12/24/20 21:13 12/24/20 21:13 Labs: Abnormal Lab Results - Last 24 Hours (Table) 12/24/20 12/24/20 12/24/20 Range/Units 21:13 21:13 22:27 WBC 12.0 H (3.8-10.6) k/uL Neutrophils # 10.4 H (1.3-7.7) k/uL Lymphocytes # 0.8 L (1.0-4.8) k/uL BUN 19 H (7-17) mg/dL Glucose 123 H (74-99) mg/dL Urine Protein 1+ H (Negative) Urine Ketones Trace H (Negative) Urine Blood Large H (Negative) Urine Nitrite Positive H (Negative) Ur Leukocyte Esterase Trace H (Negative) Urine RBC >182 H (0-5) /hpf Urine WBC 11 H (0-5) /hpf Microbiology - Last 24 Hours (Table) 12/24/20 22:27 Urine Culture - Preliminary Urine,Voided <Bobbi Blandon - Last Filed: 12/25/20 15:45> Objective - Vital Signs Vital signs: Vital Signs Temp 97.9 F 12/25/20 13:42 Pulse 84 12/25/20 13:42 Resp 18 12/25/20 13:42 BP 166/84 12/25/20 13:42 Pulse Ox 94 L 12/25/20 13:42 Intake & Output 12/24/20 12/25/20 12/25/20 18:59 06:59 18:59 Weight 68.039 kg - Labs CBC & Chem 7: 12/24/20 21:13 12/24/20 21:13 Labs: Abnormal Lab Results - Last 24 Hours (Table) 12/24/20 12/24/20 12/24/20 Range/Units 21:13 21:13 22:27 WBC 12.0 H (3.8-10.6) k/uL Neutrophils # 10.4 H (1.3-7.7) k/uL Lymphocytes # 0.8 L (1.0-4.8) k/uL BUN 19 H (7-17) mg/dL Glucose 123 H (74-99) mg/dL Urine Protein 1+ H (Negative) Urine Ketones Trace H (Negative) Urine Blood Large H (Negative) Urine Nitrite Positive H (Negative) Ur Leukocyte Esterase Trace H (Negative) Urine RBC >182 H (0-5) /hpf Urine WBC 11 H (0-5) /hpf Microbiology - Last 24 Hours (Table) 12/24/20 22:27 Urine Culture - Preliminary Urine,Voided Assessment and Plan Assessment: Ciro Doan NP rendered care for this patient independently, reviewed the findings and plan as documented in the note above. I did not physically speak with or examine the patient on this date. Patient seen by physician Dr. Sims on 12/25 and 0148. With altered mentation will check TSH
--- NOTE | 2020-12-25 15:58 | US ---
EXAMINATION TYPE: US venous doppler duplex LE RT DATE OF EXAM: 12/25/2020 3:46 PM COMPARISON: NONE CLINICAL HISTORY: rule out DVT. Very confused patient does not know her own name, has right leg pain and took 2 techs to hold patient and get exam done. SIDE PERFORMED: right TECHNIQUE: The lower extremity deep venous system is examined utilizing real time linear array sonog phil with graded compression, doppler sonography and color-flow sonography. VESSELS IMAGED: Common Femoral Vein Deep Femoral Vein Greater Saphenous Vein * Femoral Vein Popliteal Vein Small Saphenous Vein * Right Leg: Negative for DVT, unable to do compressions behind the knee due to patient's intolerance for it. IMPRESSION: No definite sonographic evidence for deep vein thrombosis of the right lower extremity but examinatio n is limited due to patient's pain.
[2020-12-25] MEDS: LISINOPRIL-HCTZ 20-12.5 MG 1 EACH TAB PO SCH (20:04)
[2020-12-25] MEDS: QUEtiapine 25 MG TAB PO SCH (20:04)
[2020-12-26] MEDS: HEPARIN SODIUM,PORCINE/PF 5,000 UNIT/0.5 ML SYRINGE SQ SCH ×4 (00:03→16:07)
[2020-12-26] MEDS: SODIUM CHLORIDE 0.9% 1,000 ML IV SCH ×2 (04:53→16:13)
[2020-12-26] MEDS: LEVOTHYROXINE 100 MCG TAB PO SCH (04:53)
[2020-12-26 06:03] LABS: HCT 35.8 % (34.0-46.0); HGB 11.7 gm/dL (11.4-16.0); MCH 30.2 pg (25.0-35.0); MCHC 32.5 g/dL (31.0-37.0); Mean Platelet Volume 8.2; Platelet Count 147 k/uL (150-450); RBC 3.86 m/uL (3.80-5.40); RDW 13.9 % (11.5-15.5); WBC 7.3 k/uL (3.8-10.6)
[2020-12-26 06:18] LABS: MCV 92.9 fL (80.0-100.0)
[2020-12-26] MEDS: METOPROLOL TARTRATE 50 MG TAB PO SCH ×3 (09:13→20:55)
[2020-12-26] MEDS: SERTRALINE 50 MG TAB PO SCH ×2 (09:14→10:23)
--- NOTE | 2020-12-26 10:32 | P.PN ---
<Ciro Doan - Last Filed: 12/26/20 13:55> Subjective Progress Note Date: 12/26/20 Hospital course: Patient is a 72-year-old female with a past medical history of hypertension, h ypothyroidism, and dementia. She was brought to the emergency department by her for reports of worsening confusion and combative behaviors. reports over the last week patient has had increased confusion, refusing to take her medications, urinary and bowel incontinence, and increased agitation with combative behaviors. In the emergency department., Patient was fully worked up. Chest x-ray completed negative for acute cardiopulmonary process. X-ray hip and pelvis negative for acute abnormalities. EKG showed sinus bradycardia at 58 bpm with occasional PACs. Labs obtained revealing mild leukocytosis with WBC count of 12.0 and acute cystitis as evidenced by urinalysis positive for protein, ketones, blood, nitrites, leukocytes, and greater than 182 WBCs. Patient started on Rocephin 1 g every 24 hours. Urine culture obtained. Patient was admitted under our services with consultation to case management for possible assistance with placement. Patient's reports he would like patient to go home, but needs assistance caring for her as he is not able to do so on his own. Physical exam: Patient again seen this morning at bedside. She remains alert to self only. Patient awake, however uncooperative with following commands. She shows no signs of acute distress. Respirations even regular and unlabored. Vital signs stable. Patient denies having any complaints. General: non toxic, no distress, appears at stated age Derm: warm, dry Head: atraumatic, normocephalic, symmetric Eyes: EOMI, no lid lag, anicteric sclera Mouth: no lip lesion, mucus membranes moist Cardiovascular: S1S2 reg, no murmur, positive posterior tibial pulse bilateral, Lungs: CTA bilateral, no rhonchi, no rales , no accessory muscle use Abdominal: soft, nontender to palpation, no guarding, no appreciable organomega ly Ext: no gross muscle atrophy, no contractures.. Nonpitting edema to bilateral feet and ankles Neuro: Speech clear. Patient following commands. Moving all extremities with no noted focal neuro deficits Psych: Patient alert to self only, confused to time, place, and situation. Plan of care: Increasing confusion likely secondary to severe hypothyroidism with TSH of 113.310 vs worsening dementia -Hypothyroidism with critically elevated TSH of 113.310 and free T4 of 0.30, considered initiation of IV Synthroid however RN reports patient did take morning Synthroid dose. -Will treat underlying infectious process of UTI with Rocephin 1 g every 24 hours and obtain urine culture. -Gentle hydration with 0.9% normal saline at 75 mL's per hour -Safe and symptomatic care with redirection as needed. -Consult to case management for assistance with possible placement versus home care. -Fall precautions Hypothyroidism -Hypothyroidism with critically elevated TSH of 113.310 and free T4 of 0.30. -Considered initiation of IV Synthroid however RN reports patient did indeed take morning Synthroid dose. -Neuro checks every 4 hours Acute cystitis -Treatment with gentle hydration with IV fluids -IV antibiotics: Rocephin. -Urine culture -Bladder management, bladder scan as needed to assess for post void residual. Dementia -Safe and supportive care with redirection as needed. -Fall precautions -Continue daily medication management with sertraline and Seroquel CODE STATUS: Full code DVT prophylaxis: Heparin Discussed with: Patient's and RN Anticipated discharge date: Clinical course to determine Anticipated discharge place: Home with [facility] A total of 45 minutes was spent on the care of this complex patient more than 50% of the time was spent in counseling and care coordination. Objective - Vital Signs Vital signs: Vital Signs Temp 97.8 F 12/26/20 05:00 Pulse 50 L 12/26/20 05:00 Resp 16 12/26/20 05:00 BP 138/78 12/26/20 05:00 Pulse Ox 97 12/26/20 05:00 Intake & Output 12/25/20 12/26/20 12/26/20 18:59 06:59 18:59 Intake Total 75 240 Balance 75 240 Weight 68.039 kg Intake: Intake, IV Titration 75 Amount Sodium Chloride 0.9% 1, 75 000 ml @ 75 mls/hr IV . [id number] [facility] Rx#:[id number] Oral 240 Other: Voiding Method Diaper Diaper Diaper Incontinent Incontinent Incontinent # Voids 4 3 # Bowel Movements 2 - Labs CBC & Chem 7: 12/26/20 05:41 12/26/20 05:41 Labs: Abnormal Lab Results - Last 24 Hours (Table) 12/26/20 Range/Units 05:41 Plt Count 147 L (150-450) k/uL Microbiology - Last 24 Hours (Table) 12/24/20 22:27 Urine Culture - Preliminary Urine,Voided <Jamia,Erica Conrad - Last Filed: 12/26/20 18:34> Subjective Patient seen and examined independently. Patient was also seen by Ciro Doan NP and case was discussed. I am in agreement with subjective, physical exam, assessment and plan as written above and amended below. Patient is very confused and resistant to care. She denies any chest pain or pain anywhere. She denies any shortness of breath. She will not folllow [place] MMANDS such as opening her mouth or squeezing my hands. She has noted to be normothermic with normal blood pressure normal, no signs of hypothermia. No signs of myxedema coma despite TSH of 113. We will proceed with Synthroid 25 g IV push daily 2 days then resume her Synthroid 100 mcg daily. It has been struggling having her take pills she can ideally take her Synthroid every other day at twice the dose or even once weekly at 7 times her normal dose. Will need close follow-up. General: Non toxic, no distress, appears at stated age Derm: warm, dry Head: atraumatic, normocephalic, symmetric Eyes: EOMI, no lid lag, anicteric sclera Mouth: no lip lesion, mucus membranes dry Cardiovascular: S1S2 reg, no murmur, positive posterior tibial pulse bilateral, Lungs: CTA bilateral, no rhonchi, no rales , no accessory muscle use Abdominal: soft, nontender to palpation, no guarding, no appreciable organomegaly Ext: no gross muscle atrophy, no edema, no contractures Neuro: CN II-XI grossly intact, no focal neuro deficits, biceps reflex 4/5 b/l L Psych: Alert, oriented, appropriate affect Objective - Vital Signs Vital signs: Vital Signs Temp 98.5 F 12/26/20 12:06 Pulse 81 12/26/20 12:06 Resp 19 12/26/20 12:06 BP 177/79 12/26/20 12:06 Pulse Ox 97 12/26/20 12:06 Intake & Output 12/25/20 12/26/20 12/26/20 18:59 06:59 18:59 Intake Total 75 240 240 Balance 75 240 240 Weight 68.039 kg Intake: Intake, IV Titration 75 Amount Sodium Chloride 0.9% 1, 75 000 ml @ 75 mls/hr IV . [id number] [facility] Rx#:[id number] Oral 240 240 Other: Voiding Method Diaper Diaper Diaper Incontinent Incontinent Incontinent # Voids 4 3 1 # Bowel Movements 2 - Labs CBC & Chem 7: 12/26/20 05:41 12/26/20 05:41 Labs: Abnormal Lab Results - Last 24 Hours (Table) 12/26/20 12/26/20 12/26/20 Range/Units 05:41 05:41 05:41 Plt Count 147 L (150-450) k/uL Potassium 3.3 L (3.5-5.5) mmol/L Chloride 110 H (96-109) mmol/L Est GFR (CKD-EPI)AfAm 55.7 L (60.0-200.0) Est GFR (CKD-EPI)NonAf 48.0 L (60.0-200.0) Calcium 8.6 L (8.7-10.3) mg/dL TSH 113.310 H (0.350-5.500) uIU/mL Free T4 0.30 L (0.80-1.80) ng/dL Microbiology - Last 24 Hours (Table) 12/24/20 22:27 Urine Culture - Preliminary Urine,Voided Gram Neg Bacilli
[2020-12-26 11:49] LABS: African American GFR (CKD) 55.7 (60.0-200.0); Anion Gap 10.5 mmol/L (4.00-12.00); BUN/Creat Ratio 15.45 Ratio (12.00-20.00); Calcium 8.6 mg/dL (8.7-10.3); Carbon Dioxide 23.5 mmol/L (21.6-31.8); Magnesium 1.5 mg/dL (1.5-2.4); Potassium 3.3 mmol/L (3.5-5.5)
[2020-12-26] MEDS: POTASSIUM CHLORIDE 10 MEQ in WATER FOR INJECTION 1 100ML.BAG IVPB SCH ×4 (14:19→22:37)
[2020-12-26] MEDS: LEVOTHYROXINE IVP 100 MCG/5 ML VIAL IV SCH (16:06)
[2020-12-26] MEDS: LISINOPRIL-HCTZ 20-12.5 MG 1 EACH TAB PO SCH (20:56)
[2020-12-26] MEDS: QUEtiapine 25 MG TAB PO SCH (20:57)
[2020-12-27] MEDS: HEPARIN SODIUM,PORCINE/PF 5,000 UNIT/0.5 ML SYRINGE SQ SCH ×3 (00:07→15:18)
[2020-12-27] MEDS: SERTRALINE 50 MG TAB PO SCH (09:33)
[2020-12-27] MEDS: LEVOTHYROXINE IVP 100 MCG/5 ML VIAL IV SCH (09:36)
[2020-12-27] MEDS: SODIUM CHLORIDE 0.9% 1,000 ML IV SCH (09:37)
[2020-12-27] MEDS: METOPROLOL TARTRATE 50 MG TAB PO SCH ×2 (09:44→22:54)
--- NOTE | 2020-12-27 10:48 | P.PN ---
Subjective Progress Note Date: 12/27/20 Hospital course: Patient is a 72-year-old female with a past medical history of hypertension, hypothyroidism, and dementia. She was brought to the emergency department by her for reports of worsening confusion and combative behaviors. reports over the last week patient has had increased confusion, refusing to take her medications, urinary and bowel incontinence, and increased agitation with combative behaviors. In the emergency department., Patient was fully worked up. Chest x-ray completed negative for acute cardiopulmonary process. X-ray hip and pelvis negative for acute abnormalities. EKG showed sinus bradycardia at 58 bpm with occasional PACs. Labs obtained revealing mild leukocytosis with WBC count of 12.0 and acute cystitis as evidenced by urinalysis positive for protein, ketones, blood, nitrites, leukocytes, and greater than 182 WBCs. Patient started on Rocephin 1 g every 24 hours. Urine culture obtained. Patient was admitted under our services with consultation to case management for possible assistance with placement. Patient's reports he would like patient to go home, but needs assistance caring for her as he is not able to do so on his own. TSH level was found to be significantly elevated in the 113.310. Patient showing no signs of mixed edema at this time. Patient was started on IV Synthroid. Urine culture positive for Enterobacter cloacae. Continue IV antibiotics: Rocephin per sensitivity report. Physical exam: Patient again seen this morning at bedside. She remains alert to self only. Patient awake, however uncooperative with following commands. She shows no signs of acute distress. Respirations even regular and unlabored. Vital signs stable. Patient denies having any complaints. General: non toxic, no distress, appears at stated age Derm: warm, dry Head: atraumatic, normocephalic, symmetric Eyes: EOMI, no lid lag, anicteric sclera Mouth: no lip lesion, mucus membranes moist Cardiovascular: S1S2 reg, no murmur, positive posterior tibial pulse bilateral, Lungs: CTA bilateral, no rhonchi, no rales , no accessory muscle use Abdominal: soft, nontender to palpation, no guarding, no appreciable organomegal y Ext: no gross muscle atrophy, no contractures.. Nonpitting edema to bilateral feet and ankles Neuro: Speech clear. Patient following commands. Moving all extremities with no noted focal neuro deficits Psych: Patient alert to self only, confused to time, place, and situation. Follows only limited or select commands. Plan of care: Increasing confusion likely secondary to severe hypothyroidism with TSH of 113.310 vs worsening dementia -Hypothyroidism with critically elevated TSH of 113.310, patient started on Synthroid 25 g IVP daily 2 days then may resume oral Synthroid 100 g daily. -Will treat underlying infectious process of UTI with Rocephin 1 g every 24 hours per sensitivity report with urine culture positive for Enterobacter cloacae. -Gentle hydration with 0.9% normal saline at 75 mL's per hour. -Safe and symptomatic care with redirection as needed. -Consult to case management for assistance with possible placement versus home care. -Fall precautions Severe Hypothyroidism -Hypothyroidism with critically elevated TSH of 113.310. -Patient started on Synthroid 25 g IVP daily 2 days then may resume oral Synthroid 100 g daily. -Neuro checks every 4 hours. Acute cystitis -Treatment with gentle hydration with IV fluids -Urine culture positive for Enterobacter cloacae. -Continue IV antibiotics: Rocephin per sensitivity report. -Bladder management, bladder scan as needed to assess for post void residual. Dementia -Safe and supportive care with redirection as needed. -Fall precautions -Continue daily medication management with sertraline and Seroquel CODE STATUS: Full code DVT prophylaxis: Heparin Discussed with: Patient's RN and called and left message on patient's voicemail at 10:45 AM updating him on results and plan of care. Anticipated discharge date: Clinical course to determine Anticipated discharge place: Home with [facility] A total of 45 minutes was spent on the care of this complex patient more than 50% of the time was spent in counseling and care coordination. Objective - Vital Signs Vital signs: Vital Signs Temp 98.6 F 12/27/20 05:00 Pulse 54 L 12/27/20 05:00 Resp 16 12/27/20 05:00 BP 150/80 12/27/20 05:00 Pulse Ox 97 12/27/20 05:00 Intake & Output 12/26/20 12/27/20 12/27/20 18:59 06:59 18:59 Intake Total 240 1050 Balance 240 1050 Intake: Intake, IV Titration 1050 Amount Potassium Chloride 10 meq 100 In Water For Injection 1 100ml.bag @ 100 mls/hr IVPB Q1HR [facility] Rx#: [id number] Sodium Chloride 0.9% 1, 900 000 ml @ 75 mls/hr IV . [id number] [facility] Rx#:[id number] cefTRIAXone 1 gm In 50 Sodium Chloride 0.9% 50 ml @ 100 mls/hr IVPB Q24H [facility] Rx#:[id number] Oral 240 0 Other: Voiding Method Diaper Diaper Incontinent Incontinent # Voids 1 2 # Bowel Movements 1 - Labs CBC & Chem 7: 12/26/20 05:41 12/27/20 07:05 Labs: Abnormal Lab Results - Last 24 Hours (Table) 12/26/20 12/26/20 Range/Units 05:41 05:41 Potassium 3.3 L (3.5-5.5) mmol/L Chloride 110 H (96-109) mmol/L Est GFR (CKD-EPI)AfAm 55.7 L (60.0-200.0) Est GFR (CKD-EPI)NonAf 48.0 L (60.0-200.0) Calcium 8.6 L (8.7-10.3) mg/dL TSH 113.310 H (0.350-5.500) uIU/mL Free T4 0.30 L (0.80-1.80) ng/dL Microbiology - Last 24 Hours (Table) 12/24/20 22:27 Urine Culture - Final Urine,Voided Enterobacter cloacae
[2020-12-27] MEDS: LISINOPRIL-HCTZ 20-12.5 MG 1 EACH TAB PO SCH (20:44)
[2020-12-27] MEDS: QUEtiapine 25 MG TAB PO SCH (20:44)
[2020-12-28] MEDS: HEPARIN SODIUM,PORCINE/PF 5,000 UNIT/0.5 ML SYRINGE SQ SCH ×4 (00:01→23:58)
[2020-12-28] MEDS: SODIUM CHLORIDE 0.9% 1,000 ML IV SCH ×3 (00:03→23:57)
[2020-12-28] MEDS: METOPROLOL TARTRATE 50 MG TAB PO SCH ×2 (07:58→20:01)
[2020-12-28] MEDS: LEVOTHYROXINE IVP 100 MCG/5 ML VIAL IV SCH (07:58)
[2020-12-28] MEDS: SERTRALINE 50 MG TAB PO SCH (07:58)
[2020-12-28 10:30] LABS: HCT 41.5 % (34.0-46.0); HGB 13.3 gm/dL (11.4-16.0); MCH 30.1 pg (25.0-35.0); MCHC 31.9 g/dL (31.0-37.0); MCV 94.1 fL (80.0-100.0); Platelet Count 173 k/uL (150-450); RBC 4.41 m/uL (3.80-5.40); RDW 14.3 % (11.5-15.5); WBC 5.6 k/uL (3.8-10.6)
[2020-12-28 10:43] LABS: African American GFR (CKD) 67 (>60 ml/min/1.73 sqM); Anion Gap 6 mmol/L; Blood Urea Nitrogen 11 mg/dL (7-17); Calcium 8.9 mg/dL (8.4-10.2); Carbon Dioxide 30 mmol/L (22-30); Chloride 105 mmol/L (98-107); Glucose 127 mg/dL (74-99); Non-African American GFR(CKD) 58 (>60 ml/min/1.73 sqM); Potassium 3.2 mmol/L (3.5-5.1); Sodium 141 mmol/L (137-145)
--- NOTE | 2020-12-28 11:14 | P.PN ---
Subjective Progress Note Date: 12/28/20 Hospital course: Patient is a 72-year-old female with a past medical history of hypertension, hypothyroidism, and dementia. She was brought to the emergency department by her for reports of worsening confusion and combative behaviors. reports over the last week patient has had increased confusion, refusing to take her medications, urinary and bowel incontinence, and increased agitation with combative behaviors. In the emergency department., Patient was fully worked up. Chest x-ray completed negative for acute cardiopulmonary process. X-ray hip and pelvis negative for acute abnormalities. EKG showed sinus bradycardia at 58 bpm with occasional PACs. Labs obtained revealing mild leukocytosis with WBC count of 12.0 and acute cystitis as evidenced by urinalysis positive for protein, ketones, blood, nitrites, leukocytes, and greater than 182 WBCs. Patient started on Rocephin 1 g every 24 hours. Urine culture obtained. Patient was admitted under our services with consultation to case management for possible assistance with placement. Patient's reports he would like patient to go home, but needs assistance caring for her as he is not able to do so on his own. TSH level was found to be significantly elevated in the 113.310. Patient showing no signs of mixed edema at this time. Patient was started on IV Synthroid. Urine culture positive for Enterobacter cloacae. Continue IV antibiotics: Rocephin per sensitivity report. Physical exam: Patient again seen this morning at bedside. She remains alert to self only. Patient awake, however uncooperative with following commands. She shows no signs of acute distress. Respirations even regular and unlabored. Vital signs stable. Patient denies having any complaints. Patient received last dose of IV Synthroid today and to resume oral Synthroid 100 g tomorrow morning. Patient has shown no improvement of mentation despite replacement of thyroid hormone with IV Synthroid and treatment of Enterobacter clocae positive UTI, increasing confusion likely secondary to worsening dementia. Plans for discharge home tomorrow morning with [facility]. General: non toxic, no distress, appears at stated age Derm: warm, dry Head: atraumatic, normocephalic, symmetric Eyes: EOMI, no lid lag, anicteric sclera Mouth: no lip lesion, mucus membranes moist Cardiovascular: S1S2 reg, no murmur, positive posterior tibial pulse bilateral, Lungs: CTA bilateral, no rhonchi, no rales , no accessory muscle use Abdominal: soft, nontender to palpation, no guarding, no appreciable organomegaly Ext: no gross muscle atrophy, no contractures.. Nonpitting edema to bilateral feet and ankles Neuro: Speech clear. Patient following commands. Moving all extremities with no noted focal neuro deficits Psych: Patient alert to self only, confused to time, place, and situation. Follows only limited or select commands. Plan of care: Increasing confusion likely secondary to worsening dementia, as patient has not shown any improvement with treatment of Enterobacter clocae positive UTI or with thyroid replacement secondary to severe hypothyroidism. -Hypothyroidism with critically elevated TSH of 113.310, patient started on Synthroid 25 g IVP daily 2 days then may resume oral Synthroid 100 g daily. -Will treat underlying infectious process of UTI with Rocephin 1 g every 24 hours per sensitivity report with urine culture positive for Enterobacter cloacae. -Gentle hydration with 0.9% normal saline at 75 mL's per hour. -Safe and symptomatic care with redirection as needed. -Consult to case management for assistance with possible placement versus home care. -Fall precautions Severe Hypothyroidism -Hypothyroidism with critically elevated TSH of 113.310. -Patient started on Synthroid 25 g IVP daily 2 days then may resume oral Synthroid 100 g daily. -Neuro checks every 4 hours. Acute cystitis -Treatment with gentle hydration with IV fluids -Urine culture positive for Enterobacter cloacae. -Continue IV antibiotics: Rocephin per sensitivity report today is day 4 out of 5 for antibiotics. -Bladder management, bladder scan as needed to assess for post void residual. Dementia -Safe and supportive care with redirection as needed. -Fall precautions -Continue daily medication management with sertraline and Seroquel CODE STATUS: Full code DVT prophylaxis: Heparin Discussed with: Patient, patient's , and RN. Anticipated discharge date: Tomorrow Anticipated discharge place: Home with [facility] A total of 45 minutes was spent on the care of this complex patient more than 50% of the time was spent in counseling and care coordination. Objective - Vital Signs Vital signs: Vital Signs Temp 98.4 F 12/28/20 04:55 Pulse 53 L 12/28/20 04:55 Resp 16 12/28/20 04:55 BP 178/98 12/28/20 04:55 Pulse Ox 97 12/28/20 04:55 Intake & Output 12/27/20 12/28/20 12/28/20 18:59 06:59 18:59 Intake Total 900 Balance 900 Intake: Intake, IV Titration 900 Amount Sodium Chloride 0.9% 1, 900 000 ml @ 75 mls/hr IV . [id number] [facility] Rx#:[id number] Other: Voiding Method Diaper Diaper Incontinent Incontinent # Voids 6 1 - Labs CBC & Chem 7: 12/28/20 10:13 12/28/20 10:13 Labs: Microbiology - Last 24 Hours (Table) 12/24/20 22:27 Urine Culture - Final Urine,Voided Enterobacter cloacae
[2020-12-28] MEDS: POTASSIUM CHLORIDE 10 MEQ in WATER FOR INJECTION 1 100ML.BAG IVPB SCH ×4 (16:34→21:31)
[2020-12-28] MEDS: QUEtiapine 25 MG TAB PO SCH (20:01)
[2020-12-28] MEDS: LISINOPRIL-HCTZ 20-12.5 MG 1 EACH TAB PO SCH (20:01)
[2020-12-28 20:19] VITALS: RESP 16
[2020-12-29 04:55] VITALS: BP 188/78; PULSE 55; TEMP 98.7
[2020-12-29 06:25] LABS: HCT 40.7 % (34.0-46.0); HGB 13.2 gm/dL (11.4-16.0); MCH 29.6 pg (25.0-35.0); MCHC 32.3 g/dL (31.0-37.0); MCV 91.5 fL (80.0-100.0); Mean Platelet Volume 9.2; Platelet Count 187 k/uL (150-450); RBC 4.45 m/uL (3.80-5.40); RDW 13.7 % (11.5-15.5); WBC 6.4 k/uL (3.8-10.6)
[2020-12-29] MEDS ORDERED: LEVOTHYROXINE 100 MCG TAB PO SCH (06:30)
[2020-12-29 06:42] LABS: African American GFR (CKD) 60 (>60 ml/min/1.73 sqM); Anion Gap 6 mmol/L; Blood Urea Nitrogen 13 mg/dL (7-17); Calcium 9.3 mg/dL (8.4-10.2); Carbon Dioxide 28 mmol/L (22-30); Chloride 107 mmol/L (98-107); Glucose 108 mg/dL (74-99); Non-African American GFR(CKD) 52 (>60 ml/min/1.73 sqM); Potassium 4.3 mmol/L (3.5-5.1); Sodium 141 mmol/L (137-145)
[2020-12-29] MEDS: METOPROLOL TARTRATE 50 MG TAB PO SCH (08:45)
[2020-12-29] MEDS: HEPARIN SODIUM,PORCINE/PF 5,000 UNIT/0.5 ML SYRINGE SQ SCH (08:45)
[2020-12-29] MEDS: SERTRALINE 50 MG TAB PO SCH (08:45)
--- NOTE | 2020-12-29 13:11 | P.DS ---
Providers Date of admission: 12/25/20 01:09 Expected date of discharge: 12/29/20 Attending physician: Slivia Cano MD Primary care physician: Marleni Goldman MD Hospital Course: Discharge Diagnosis: Uncomplicated urinary tract infection, not Galeas catheter associated, present on admission Acute delirium on top of chronic dementia secondary to above Hypothyroidism with TSH greater than 100 secondary to patient not taking medication Hypertension Hospital Course: Patient is a 72-year-old female with a past medical history of hypertension, hypothyroidism, and dementia. She was brought to the emergency department by her for reports of worsening confusion and combative behaviors. In the emergency Department patient underwent an extensive evaluation. Chest x-ray negative for acute cardiopulmonary process. X-ray hip and pelvis negative for acute abnormalities. Labs obtained revealing mild leukocytosis with WBC count of 12.0 and acute cystitis as evidenced by urinalysis positive for protein, ketones, blood, nitrites, leukocytes, and greater than 182 WBCs. Patient started on Rocephin 1 g every 24 hours. Urine culture obtained and resulted as Enterobacter cloacae. TSH level was found to be significantly elevated in the 113.310. Patient showing no signs of mixed edema at this time. Patient was started on IV Synthroid. Patient did agree to orally take medications during her hospital stay. Has been was offered help with possible rehab stay, he declined and would like to take patient home. Home health care services were arranged as well as options for pain private duty nursing. She completed her treatment for urinary tract infection prior to discharge. Follow-up: Dr. Goldman in 2-3 days, continue on Synthroid, consider out patient endocrine appointment if patient is noncompliant with Synthroid as she could be changed to every other day or once weekly dosing if needed. Patient seen and examined at bedside. Denies pain, but then answers "how should I know" all her questions. Vital signs reviewed and stable. General: non toxic, no distress, appears at stated age Derm: warm, dry Head: atraumatic, normocephalic, symmetric Eyes: EOMI, no lid lag, anicteric sclera Mouth: no lip lesion, mucus membranes moist Cardiovascular: S1S2 reg, no murmur, positive posterior tibial pulse bilateral, Lungs: CTA bilateral, no rhonchi, no rales , no accessory muscle use Abdominal: soft, nontender to palpation, no guarding, no appreciable organomegaly Ext: no gross muscle atrophy, no edema, no contractures Neuro: CN II-XI grossly intact, no focal neuro deficits Psych: Alert and oriented 0, easily agitated A total of 32 minutes of time were spent preparing this complex discharge summary . Patient Condition at Discharge: Stable Plan - Discharge Summary Discharge Rx Participant: No New Discharge Prescriptions: New Metoprolol Tartrate [Lopressor] 100 mg PO BID tab Lisinopril-Hctz 20-12.5 mg [Zestoretic 20-12.5] 1 each PO HS tab QUEtiapine [SEROquel] 25 mg PO HS #30 tab Continue Levothyroxine Sodium 100 mcg PO DAILY Sertraline HCl [Zoloft] 50 mg PO DAILY Discontinued Oxybutynin Chloride 5 mg PO BID Discharge Medication List Levothyroxine Sodium 100 mcg PO DAILY 07/30/20 [History] Sertraline HCl [Zoloft] 50 mg PO DAILY 12/25/20 [History] Lisinopril-Hctz 20-12.5 mg [Zestoretic 20-12.5] 1 each PO HS tab 12/29/20 [Rx] Metoprolol Tartrate [Lopressor] 100 mg PO BID tab 12/29/20 [Rx] QUEtiapine [SEROquel] 25 mg PO HS #30 tab 12/29/20 [Rx] Follow up Appointment(s)/Referral(s): [facility], [NON-STAFF] - 1 Week Marleni Goldman MD [Primary Care Provider] - 1-2 days (patient will have to call and schedule own appt) Nancy Asencio MD [STAFF PHYSICIAN] - As Needed Patient Instructions/Handouts: Quetiapine (By mouth), Urinary Tract Infection in Women (DC) Activity/Diet/Wound Care/Special Instructions: Activity: as tolerated Diet: regular Special Instructions: visiting [facility] - Discharge Disposition: HOME SELF-CARE
== END 2020-12-29 13:20 | disposition home health service (06) | DRG 690 ==
LOC: EC 19:20 → 5NMEDONC 12-25 01:09
PROVIDERS: ADMIT Internal Medicine; ATTEND Internal Medicine
DX: N30.01 Acute cystitis with hematuria (principal); F03.91 Unspecified dementia, unspecified severity, with behavioral disturbance; F05 Delirium due to known physiological condition; E03.9 Hypothyroidism, unspecified; I10 Essential (primary) hypertension; H35.30 Unspecified macular degeneration; H54.8 Legal blindness, as defined in USA; K21.9 Gastro-esophageal reflux disease without esophagitis; R00.1 Bradycardia, unspecified; M25.551 Pain in right hip; M19.041 Primary osteoarthritis, right hand; M19.042 Primary osteoarthritis, left hand; Z79.890 Hormone replacement therapy; Z79.899 Other long term (current) drug therapy; Z90.49 Acquired absence of other specified parts of digestive tract; Z87.19 Personal history of other diseases of the digestive system; Z98.890 Other specified postprocedural states; Z88.5 Allergy status to narcotic agent
CPT/HCPCS: 36415; 71046; 73502; 80048; 80053; 81001; 83735; 84132; 84439; 84443; 84484; 85025; 85027; 85610; 85730; 87077; 87086; 87186; 93005; 96374; 99285

== ENCOUNTER 2021-01-03 11:27 | Observation (INO) | payer MEDICARE ==
[2021-01-03] MEDS ORDERED: SODIUM CHLORIDE 0.9% 500 ML 500 ML IV STA (12:04)
--- NOTE | 2021-01-03 12:05 | ED ---
General Adult HPI - General Chief complaint: Recheck/Abnormal Lab/Rx Stated complaint: failure to thrive Time Seen by Provider: 01/03/21 11:48 Source: EMS Mode of arrival: EMS Limitations: altered mental status - History of Present Illness Initial comments: Dictation was produced using [employer] dictation software. please excuse any grammatical, word or spelling errors. Chief Complaint: 72-year-old female brought in by EMS for failure to thrive, aggressive behavior History of Present Illness: Is a 72-year-old female she has past medical history of dementia. She is brought to the emergency department because reports patient has been more aggressive than usual. She's been refusing to eat. There was no other concern about patient's mental status. Patient unable to provide HPI at this time. EMS reports the patient's baseline is a and O 1 Unable to obtain stated mental status PHYSICAL EXAM: General Impression: not in acute distress, cooperative, malodorous HEENT: Normocephalic atraumatic, extra-ocular movements intact, pupils equal and reactive to light bilaterally, dry mucous membranes Cardiovascular: Heart regular rate and rhythm Chest: no retractions, no tachypnea Abdomen: abdomen soft, non-tender, non-distended, no organomegaly Musculoskeletal: Pulses present and equal in all extremities, no peripheral edema Motor: no focal deficits noted Neurological: CN II-XII grossly intact, no focal motor or sensory deficits noted Skin: Intact with no visualized rashes ED course: 80-year-old female brought to the emergency department for refusing to eat, aggressive behavior. Vital signs upon arrival are within acceptable limits. Patient resting comfortably at bedside. She does not appear to be in acute distress. Laboratory evaluation obtained. CBC is unremarkable shows leukocytosis of 11.0. Rest of CBC is unremarkable. Metabolic panel shows dehydration. Urinalysis consistent with UTI. Computed tomography scan of brain is negative. Family at bedside does not feel comfortable taking her home. Furthermore, they're requesting a hospice consult due to patient poor quality of life. Patient be admitted to [facility]. Patient given 1 g of ceftriaxone. - Related Data Home Medications Medication Instructions Recorded Confirmed Levothyroxine Sodium 100 mcg PO DAILY 07/30/20 01/03/21 Sertraline HCl [Zoloft] 50 mg PO DAILY 12/25/20 01/03/21 Lisinopril-Hctz 20-12.5 mg 1 tab PO HS 01/03/21 01/03/21 [Zestoretic 20-12.5] Metoprolol Tartrate [Lopressor] 100 mg PO BID 01/03/21 01/03/21 Allergies Allergy/AdvReac Type Severity Reaction Status Date / Time tramadol AdvReac Nausea & Verified 01/03/21 13:16 Vomiting Review of Systems ROS Statement: Those systems with pertinent positive or pertinent negative responses have been documented in the HPI. ROS Other: All systems not noted in ROS Statement are negative. Past Medical History Past Medical History: Dementia, Eye Disorder, GERD/Reflux, Osteoarthritis (OA), Thyroid Disorder Additional Past Medical History / Comment(s): Legally blind L eye. Has macular degeneration, diff. swallowing and arthritis in both hands. History of Any Multi-Drug Resistant Organisms: None Reported Past Surgical History: Cholecystectomy Additional Past Surgical History / Comment(s): EGD Past Anesthesia/Blood Transfusion Reactions: No Reported Reaction Past Psychological History: No Psychological Hx Reported Smoking Status: Never smoker Past Alcohol Use History: None Reported Past Drug Use History: None Reported - Past Family History Mother Family Medical History: Unable to Obtain Additional Family Medical History / Comment(s): Pt. was adopted and does not know her family hx. General Exam Limitations: altered mental status Course Vital Signs 01/03/21 01/03/21 01/03/21 11:35 11:39 12:39 Temperature 98.6 F Pulse Rate 55 L 59 L 59 L Respiratory 18 16 16 Rate Blood Pressure 183/91 O2 Sat by Pulse 100 98 98 Oximetry 01/03/21 13:39 Temperature Pulse Rate 54 L Respiratory 16 Rate Blood Pressure 169/88 O2 Sat by Pulse 98 Oximetry Medical Decision Making - Lab Data Result diagrams: 01/03/21 13:40 01/03/21 12:21 Lab Results 01/03/21 01/03/21 01/03/21 Range/Units 12:21 12:21 13:40 WBC 11.0 H (3.8-10.6) k/uL RBC 4.74 (3.80-5.40) m/uL Hgb 14.1 (11.4-16.0) gm/dL Hct 43.4 (34.0-46.0) % MCV 91.6 (80.0-100.0) fL MCH 29.8 (25.0-35.0) pg MCHC 32.6 (31.0-37.0) g/dL RDW 13.9 (11.5-15.5) % Plt Count 263 (150-450) k/uL MPV 9.1 Neutrophils % 83 % Lymphocytes % 10 % Monocytes % 6 % Eosinophils % 0 % Basophils % 1 % Neutrophils # 9.1 H (1.3-7.7) k/uL Lymphocytes # 1.1 (1.0-4.8) k/uL Monocytes # 0.6 (0-1.0) k/uL Eosinophils # 0.0 (0-0.7) k/uL Basophils # 0.1 (0-0.2) k/uL Sodium 142 (137-145) mmol/L Potassium 4.5 (3.5-5.1) mmol/L Chloride 105 (98-107) mmol/L Carbon Dioxide 29 (22-30) mmol/L Anion Gap 8 mmol/L BUN 34 H (7-17) mg/dL Creatinine 0.81 (0.52-1.04) mg/dL Est GFR (CKD-EPI)AfAm 81 (>60 ml/min/1.73 sqM) Est GFR (CKD-EPI)NonAf 70 (>60 ml/min/1.73 sqM) Glucose 114 H (74-99) mg/dL Calcium 10.0 (8.4-10.2) mg/dL Urine Color Yellow Urine Appearance Turbid H (Clear) Urine pH 6.0 (5.0-8.0) Ur Specific [place] 1.019 (1.001-1.035) Urine Protein 2+ H (Negative) Urine Glucose (UA) Negative (Negative) Urine Ketones 1+ H (Negative) Urine Blood Moderate H (Negative) Urine Nitrite Negative (Negative) Urine Bilirubin Negative (Negative) Urine Urobilinogen <2.0 (<2.0) mg/dL Ur Leukocyte Esterase Large H (Negative) Urine RBC 19 H (0-5) /hpf Urine WBC >182 H (0-5) /hpf Urine WBC Clumps Many H (None) /hpf Urine Bacteria Many H (None) /hpf Urine Mucus Occasional H (None) /hpf Disposition Clinical Impression: UTI (urinary tract infection), Grave disability Disposition: ADMITTED IP TO THIS HOSP Condition: Fair Referrals: Kindsvater,Marleni, MD [Primary Care Provider] - 1-2 days
[2021-01-03 12:56] LABS: Appearance,Urine Turbid (Clear); Bacteria,Urine Many /hpf; Bilirubin,Urine Negative (Negative); Blood,Urine Moderate (Negative); Color,Urine Yellow; Glucose,Urine (UA) Negative (Negative); Ketones,Urine 1+ (Negative); Leukocyte Esterase,Urine Large (Negative); Mucus,Urine Occasional /hpf; Nitrite,Urine Negative (Negative); Protein,Urine 2+ (Negative); RBC,Urine 19 /hpf (0-5); Specific Gravity,Urine 1.019 (1.001-1.035); Urobilinogen,Urine <2.0 mg/dL (<2.0); WBC,Urine >182 /hpf (0-5)
[2021-01-03 13:08] LABS: Potassium 4.5 mmol/L (3.5-5.1)
--- NOTE | 2021-01-03 13:10 | CT ---
EXAMINATION TYPE: CT brain wo con DATE OF EXAM: 01/03/2021 COMPARISON: None HISTORY: Acute Delerium CT DLP: 1088.[address] of the brain was performed. The ventricles, basal cisterns and sulci overlying the cerebral convexities demonstrate mild enlargem ent. There is no evidence for intracranial hemorrhage or sulcal effacement. There is decreased attenuation about the periventricular white matter and deep white matter of both c erebral hemispheres, compatible with chronic small vessel ischemia. Differential diagnosis does inclu de demyelination. No mass effects are seen.No midline shift. Osseous calvarium is intact. If symptoms persist consider MRI. IMPRESSION: 1. Age related atrophic and chronic small vessel ischemic change without acute intracranial process s een at this time.
[2021-01-03] MEDS ORDERED: cefTRIAXone IN SWFI 1,000 MG/10 ML SYRINGE IVP STA (13:26)
[2021-01-03 13:51] LABS: Basophils # (A) 0.1 k/uL (0-0.2); Basophils % (A) 1 %; Eosinophils % (A) 0 %; HCT 43.4 % (34.0-46.0); HGB 14.1 gm/dL (11.4-16.0); Lymphocytes # (A) 1.1 k/uL (1.0-4.8); Lymphocytes % (A) 10 %; MCH 29.8 pg (25.0-35.0); MCHC 32.6 g/dL (31.0-37.0); MCV 91.6 fL (80.0-100.0); Mean Platelet Volume 9.1; Monocytes # (A) 0.6 k/uL (0-1.0); Monocytes % (A) 6 %; Neutrophils # (A) 9.1 k/uL (1.3-7.7); Neutrophils % (A) 83 %; Platelet Count 263 k/uL (150-450); RBC 4.74 m/uL (3.80-5.40); RDW 13.9 % (11.5-15.5)
[2021-01-03] MEDS ORDERED: NALOXONE 0.4 MG/ML 1 ML VIAL IV PRN (14:35)
[2021-01-03] MEDS ORDERED: ONDANSETRON 4 MG/2 ML VIAL IVP PRN (14:35)
[2021-01-03] MEDS: SODIUM CHLORIDE 0.9% 1,000 ML IV SCH ×2 (15:02→23:46)
--- NOTE | 2021-01-03 16:57 | P.HPIM ---
History of Present Illness H&P Date: 01/03/21 Patient is a 80-year-old male for history of dementia, GERD, and hypothyroidism who presented to the ER secondary to altered mentation and decreased oral intake. The ER she underwent an extensive evaluation. She was found to have a urinary tract infection. Patient's family felt she was at end his life and wanted to proceed with hospice. Referral was made to [facility]. Patient seen and examined at bedside in the ER. She is currently nonverbal. Daughter at bedside. She reports that her mother has not be eaeting or drinking, and has not been getting out of bed. She is agitated when she is awake. Unable to obtain review of systems secondary to altered mentation General: non toxic, no distress, appears at stated age Derm: warm, dry Head: atraumatic, normocephalic, symmetric Eyes: no lid lesion,, anicteric sclera, pupils equal round reactive to light ENT: Nose and ears atraumatic, no thrush, no pharyngeal erythema Neck: No thyromegaly, no cervical lymphadenopathy, trachea midline, supple Mouth: no lip lesion, mucus membranes moist Cardiovascular: S1S2 irreg, no murmur, positive posterior tibial pulse bilateral, no edema, capillary refill less than 2 seconds Lungs: Decreased bs bilateral, no ronchi, no rales, no wheeze, no accessory muscle use Abdominal: soft, nontender to palpation, no guarding, no appreciable organomegaly, normal bowel sounds Ext: no gross muscle atrophy, no contractures Neuro: + cough, moving arms and legs independently. Psych: lethargic and grimices to pain Demenentia with toxic metabolic encephalopathy Moderate protein calorie malnutrition due to decreased oral intake - consult hospice - DNR - safe and supportive care - comfort medications UTI - Roc[place]in as no oral intake Hypothyrodisim TSH 10o - synthroid if alert and awake enough to swallow Chronic: GERD Awaiting hospice intake The patient is placed in observation with an anticipated less than 2 midnight stay for evaluation of progessing dementia. Surrogate decision-maker: CODE STATUS: DNR DVT prophylaxis: SCDs Discussed with: patient, nursing Anticipated discharge date: in AM Anticipated discharge place: home with hospice A total of 45 minutes was spent on the care of this complex patient more than 50% of the time was spent in counseling and care coordination. Past Medical History Past Medical History: Dementia, Eye Disorder, GERD/Reflux, Osteoarthritis (OA), Thyroid Disorder Additional Past Medical History / Comment(s): Legally blind L eye. Has macular degeneration, diff. swallowing and arthritis in both hands. History of Any Multi-Drug Resistant Organisms: None Reported Past Surgical History: Cholecystectomy Additional Past Surgical History / Comment(s): EGD Past Anesthesia/Blood Transfusion Reactions: No Reported Reaction Past Psychological History: No Psychological Hx Reported Smoking Status: Never smoker Past Alcohol Use History: None Reported Past Drug Use History: None Reported - Past Family History Mother Family Medical History: Unable to Obtain Additional Family Medical History / Comment(s): Pt. was adopted and does not know her family hx. Medications and Allergies Home Medications Medication Instructions Recorded Confirmed Type Levothyroxine Sodium 100 mcg PO DAILY 07/30/20 01/03/21 History Sertraline HCl [Zoloft] 50 mg PO DAILY 12/25/20 01/03/21 History Lisinopril-Hctz 20-12.5 mg 1 tab PO HS 01/03/21 01/03/21 History [Zestoretic 20-12.5] Metoprolol Tartrate [Lopressor] 100 mg PO BID 01/03/21 01/03/21 History Allergies Allergy/AdvReac Type Severity Reaction Status Date / Time tramadol AdvReac Nausea & Verified 01/03/21 13:16 Vomiting Physical Exam Osteopathic Statement: *. No significant issues noted on an osteopathic struct ural exam other than those noted in the History and Physical/Consult. Vitals: Vital Signs Temp Pulse Resp BP Pulse Ox 01/03/21 15:00 57 L 16 98 01/03/21 14:00 59 L 16 98 01/03/21 13:39 54 L 16 169/88 98 01/03/21 12:39 59 L 16 98 01/03/21 11:39 59 L 16 98 01/03/21 11:35 98.6 F 55 L 18 183/91 100 Intake and Output 01/03/21 01/03/21 01/03/21 06:59 14:59 22:59 Output Total 1000 Balance -1000 Output: Urine 1000 Straight 1000 Other: Weight 77.111 kg Results CBC & Chem 7: 01/03/21 13:40 01/03/21 12:21 Labs: Abnormal Lab Results - Last 24 Hours (Table) 01/03/21 01/03/21 01/03/21 Range/Units 12:21 12:21 13:40 WBC 11.0 H (3.8-10.6) k/uL Neutrophils # 9.1 H (1.3-7.7) k/uL BUN 34 H (7-17) mg/dL Glucose 114 H (74-99) mg/dL Urine Appearance Turbid H (Clear) Urine Protein 2+ H (Negative) Urine Ketones 1+ H (Negative) Urine Blood Moderate H (Negative) Ur Leukocyte Esterase Large H (Negative) Urine RBC 19 H (0-5) /hpf Urine WBC >182 H (0-5) /hpf Urine WBC Clumps Many H (None) /hpf Urine Bacteria Many H (None) /hpf Urine Mucus Occasional H (None) /hpf
[2021-01-03] MEDS ORDERED: MELATONIN 3 MG TABLET PO PRN (16:58)
[2021-01-03] MEDS ORDERED: LORazepam 2 MG/ML INJ IV PRN (16:58)
[2021-01-03] MEDS ORDERED: MORPHINE SULFATE 4 MG/ML SYRINGE IV PRN (16:58)
[2021-01-03 22:10] VITALS: PULSE 58
[2021-01-03 23:15] VITALS: RESP 20
[2021-01-04 05:15] VITALS: BP 124/67; TEMP 98.7
[2021-01-04] MEDS: SODIUM CHLORIDE 0.9% 1,000 ML IV SCH (09:13)
--- NOTE | 2021-01-04 11:41 | P.DS ---
Providers Date of admission: 01/03/21 16:56 Expected date of discharge: 01/04/21 Attending physician: Bobbi Blandon DO Primary care physician: Marleni Goldman MD Assessment: Discharge Diagnosis: Dementia with toxic metabolic encephalopathy Better. Malnutrition secondary to decreased oral intake UTI Hypothyroidism GERD Hospital Course: Patient is a 80-year-old male for history of dementia, GERD, and hypothyroidism who presented to the ER secondary to altered mentation and decreased oral intake. The ER she underwent an extensive evaluation. She was found to have a urinary tract infection. Patient's family felt she was at end of life and wanted to proceed with hospice. Referral was made [facility]. They were unable to care for her at home in her current condition and therefore she was placed in observation. On the morning of 01/04 she was cyanotic hospice and arrangements were made for discharge home. Patient seen and examined at bedside. Awake, more alert than yesterday and ate breakfast. Denies any pain. Vital signs reviewed and stable. General: non toxic, no distress, appears at stated age Derm: warm, dry Head: atraumatic, normocephalic, symmetric Eyes: EOMI, no lid lag, anicteric sclera Mouth: no lip lesion, mucus membranes moist Cardiovascular: S1S2 reg, no murmur, positive posterior tibial pulse bilateral, Lungs: Decreased bs bilateral, no rhonchi, no rales , no accessory muscle use Abdominal: soft, nontender to palpation, no guarding, no appreciable organomegaly Ext: no gross muscle atrophy, no edema, no contractures Neuro: CN II-XI grossly intact, no focal neuro deficits Psych: Alert, oriented to self, appropriate affect A total of 35 minutes of time were spent preparing this complex discharge summary . Patient Condition at Discharge: Fair Plan - Discharge Summary Discharge Rx Participant: No New Discharge Prescriptions: New MORPHINE ORAL YVETTE CONC 20mg/mL [Roxanol Oral Soln Conc 20MG/ML] 10 mg PO Q4H PRN #30 ml PRN Reason: Pain LORazepam [Ativan] 0.5 mg PO TID PRN 3 Days #9 tab PRN Reason: Agitation Or Acute Anxiety Sulfamethox-Tmp 800-160Mg [Bactrim DS 800-160 mg] 1 tab PO Q12HR #6 tab Continue Levothyroxine Sodium 100 mcg PO DAILY Sertraline HCl [Zoloft] 50 mg PO DAILY Discontinued Lisinopril-Hctz 20-12.5 mg [Zestoretic 20-12.5] 1 tab PO HS Metoprolol Tartrate [Lopressor] 100 mg PO BID Discharge Medication List Levothyroxine Sodium 100 mcg PO DAILY 07/30/20 [History] Sertraline HCl [Zoloft] 50 mg PO DAILY 12/25/20 [History] LORazepam [Ativan] 0.5 mg PO TID PRN 3 Days #9 tab 01/04/21 [Rx] MORPHINE ORAL YVETTE CONC 20mg/mL [Roxanol Oral Soln Conc 20MG/ML] 10 mg PO Q4H PRN #30 ml 01/04/21 [Rx] Sulfamethox-Tmp 800-160Mg [Bactrim DS 800-160 mg] 1 tab PO Q12HR #6 tab 01/04/21 [Rx] Follow up Appointment(s)/Referral(s): Marleni Goldman MD [Primary Care Provider] - 1-2 days [facility] Vis[facility] Nurse, [NON-STAFF] - 1 Week Discharge Disposition: HOME WITH HOSPICE
== END 2021-01-04 12:24 | disposition hospice, home (50) ==
LOC: EC 11:27 → 6NMEDSUR 16:56 → 5NMEDONC 21:42
PROVIDERS: ADMIT Internal Medicine; ATTEND Internal Medicine
DX: G92 Toxic encephalopathy (principal); F03.90 Unspecified dementia, unspecified severity, without behavioral disturbance, psychotic disturbance, mood disturbance, and anxiety; N39.0 Urinary tract infection, site not specified; E86.0 Dehydration; E44.0 Moderate protein-calorie malnutrition; R62.7 Adult failure to thrive; E03.9 Hypothyroidism, unspecified; K21.9 Gastro-esophageal reflux disease without esophagitis; R23.0 Cyanosis; H54.8 Legal blindness, as defined in USA; M19.041 Primary osteoarthritis, right hand; M19.042 Primary osteoarthritis, left hand; H35.30 Unspecified macular degeneration; M19.90 Unspecified osteoarthritis, unspecified site; Z79.899 Other long term (current) drug therapy; Z79.890 Hormone replacement therapy; Z88.5 Allergy status to narcotic agent; Z90.49 Acquired absence of other specified parts of digestive tract; Z66 Do not resuscitate
CPT/HCPCS: 96374; 99285; 36415; 93005; 80048; 85025; 81001; 87086; 87077; 87186; 70450; G0378 ×3; J0696